=== PATIENT | male | born 1955 | race Caucasian/White ===

== ENCOUNTER 2020-06-10 10:08 | Outpatient (REF) | payer MEDICAID, SELFPAY ==
[2020-06-10 12:07] LABS: C Reactive Protein 1.25 mg/dL (< or = 0.50); Rheumatoid Factor < 15.0 IU/mL (<15.0)
[2020-06-10 12:21] LABS: Erythrocyte Sedimentation Rate 12 MM/HR (0-15)
[2020-06-11 11:06] LABS: Anti DNA DS Antibody <1 IU/mL
[2020-06-12 22:26] LABS: Cyclic Citrullinated Peptide <16 UNITS
[2020-06-13 21:23] LABS: Anti Nuclear Antibody Screen NEGATIVE (NEGATIVE)
== END 2020-06-10 10:09 | disposition home or self-care (01) ==
LOC: HO.LAB 10:08
PROVIDERS: PCP Internal Medicine; Visit Provider Internal Medicine
DX: M25.50 Pain in unspecified joint (principal)
CPT/HCPCS: 36415; 85652; 86038; 86039; 86140; 86200; 86225; 86431

== ENCOUNTER 2020-06-29 18:11 | Emergency (ER) | payer MEDICAID, SELFPAY ==
[2020-06-29] VITALS (20 sets, daily range): BP systolic 131–266; BP diastolic 82–144; PULSE 86–130; RESP 18–40; TEMP -17.7–36.6; O2SAT 80–98; BMI 44.1
[2020-06-29] MEDS: Furosemide 100 MG/10 ML VIAL 60 MG IVPUSH (18:16)
[2020-06-29] MEDS: Nitroglycerin/D5W 100 MG/250 ML INFUS..BTL IVCONT (18:20)
--- NOTE | 2020-06-29 18:23 | XR_ITS ---
EXAMINATION: XR CHEST CLINICAL INFORMATION: SOB. COMPARISON: None TECHNIQUE: Frontal view of the chest was obtained. FINDINGS: The lungs are hypoexpanded with diffuse patchy infiltrates both lower lobes and both mid lung region suspicious for underlying Covid infection. There is no visible pleural effusion. Heart size and pulmonary vascularity is normal. No gross bony abnormality seen. XR/XR chest 1V IMPRESSION: Bilateral lateral lung infiltrates more prominent in the right lung base.
--- NOTE | 2020-06-29 18:23 | ECG_ITS ---
Test Reason : DIFFICULT BREATHING Blood Pressure : / mmHG Vent. Rate : 129 BPM Atrial Rate : 129 BPM P-R Int : 146 ms QRS Dur : 092 ms QT Int : 300 ms P-R-T Axes : 041 047 080 degrees QTc Int : 439 ms Sinus tachycardia Possible Left atrial enlargement Nonspecific ST and T wave abnormality Abnormal ECG When compared with ECG of 16-FEB-2020 11:26, Vent. rate has increased BY [address] T changes more prominent. Referred By: Lorenzo Rey Electronically Signed By:ADAMARIS RUIZ
[2020-06-29 18:29] LABS: Glucose, Whole Blood 175 mg/dL (60-115)
--- NOTE | 2020-06-29 18:37 | ED.SOB ---
HPI - SOB/Dyspnea General Chief Complaint: Dyspnea Stated Complaint: Resp. Distress Time Seen by Provider: 06/29/20 18:32 Source: patient and EMS Mode of arrival: EMS Limitations: other (Respiratory distress) History of Present Illness HPI Narrative: 65-year-old male who was brought to the emergency department by ambulance in respiratory distress. The patient has been short of breath for 2-3 days with worsening symptoms last night. He has noticed increased swelling in his lower extremities times 1-2 months. He did have orthopnea and noted increasing dyspnea on exertion over the past 2 weeks. The patient denied fever or chills. He states that he has an occasional cough which is productive of green sputum. States this body always hurts. He did notice diarrhea over the last 2-3 days. Apparently the patient presented to the clinic to get tested for COVID-19 and he was found to be in moderate to severe respiratory distress. Patient was found to have very low O2 saturations on room air and was placed on CPAP during transport but he did not tolerate it and was placed on 100% non-rebreather mask. On presentation to the emergency department the patient's O2 saturation was 77% on 100% non-rebreather. The patient was hypertensive with a systolic blood pressure of 250. The patient was only able to talk in 1 word sentences and was in severe respiratory distress. MD elicited complaint: shortness of breath Pertinent past history: COPD Onset (ago): day(s) (2) Severity: severe Exacerbating factors: lying flat and exertion Relieving factors: nothing Known history of: COPD Related Data Allergies Allergy/AdvReac Type Severity Reaction Status Date / Time simvastatin [SIMVASTATIN] Allergy Unknown unknown Unverified 04/07/20 19:17 Review of Systems Review of Systems: Yes all other systems are reviewed and are negative Constitutional: Constitutional: Reports as per HPI Eyes: Eyes: Reports as per HPI ENT: Reports as per HPI Cardiovascular: Cardiovascular: Reports as per HPI Respiratory: Respiratory: Reports as per HPI Gastrointestinal: Gastrointestinal: Reports as per HPI Genitourinary: Genitourinary: Reports as per HPI Musculoskeletal: Musculoskeletal: Reports as per HPI Integumentary/Breasts: Skin/Breast: Reports as per HPI Neurologic: Reports as per HPI and Reports Abnormal speech present Psychiatric: Psychiatric: Reports as per HPI Allergic/Immunologic: Allergic/Immunologic: Reports as per HPI PMFSH Past Medical History PMFSH Narrative: The patient states that he is single and lives alone. He smokes 1 pack of cigarettes per day times many years but he states he stopped smoking 2 days prior. He drinks alcohol rarely. He does smoke marijuana several times a week. Medical History CAD (coronary artery disease) COPD (chronic obstructive pulmonary disease) Diabetes GERD (gastroesophageal reflux disease) HTN (hypertension) Sleep apnea Social History Social History Alcohol intake: never Smoking Status: Current every day smoker Smoked in Last 30 Days: No Use of substances other than those prescribed or required for medical reasons: Yes Substance Use Type: Marijuana Advance Directives: No Advance Directives Information Provided: Yes Physical Exam Vital Signs: Vital Signs: Last Vital Signs Temp 0 F L 06/29/20 18:27 Pulse 97 06/29/20 20:20 Resp 22 H 06/29/20 20:20 BP 143/90 H 06/29/20 20:20 Pulse Ox 95 06/29/20 20:20 Body Mass Index 44.1 Const: General: cooperative, alert, awake, in distress (Talking in 1-2 word sentences) severe and respiratory and other (Diaphoretic) Nutritional Appearance: obese Orientation/consciousness: oriented to person and oriented to place HENMT: Head: Yes normal to inspection, Yes normocephalic and Yes atraumatic Ears: external ears normal General nose exam: Normal external nose present Face and sinus: Yes normal facial exam Mouth: Normal oral and palatal mucosa present Throat: Yes posterior oropharynx normal Eyes: General: appearance normal, both eyes and all related structures Periorbital: periorbital findings normal Eyelids: Yes eyelids normal Conjunctivae: conjunctivae normal Sclerae: sclerae normal Corneas: corneas normal Pupils: Equal, round and reactive pupils present Direct Ophthalmoscopy: normal light reflex Neck: Neck: Yes normal visual inspection and Yes supple Lymphatic: no lymphadenopathy noted Chest: Chest palpation & inspection: normal inspection of the chest and normal palpation of entire chest wall Resp: Effort & Inspection: no audible wheezes, no cough, labored and respiratory distress (Severe) Auscultation: no crackles, no rales, no rhonchi, no wheezes and diminished lung sounds (Bilaterally) Cardio: Rate: regular rate and tachycardic Rhythm: regular rhythm Heart sounds: S1 normal heart sound present, S2 normal heart sound present and no murmurs GI: Inspection: No distended Palpation (GI): Soft to palpation, nontender, no guarding and No hepatosplenomegaly present Auscultation: normal bowel sounds : General: Yes no CVA tenderness Back/Spine/Pelvis: Back: no CVA tenderness Skin: General skin exam: no rashes or lesions noted Lesions: no lesions Rashes: no rashes Wounds: no wounds Neuro: General: oriented to person and oriented to place Cranial nerves: Yes CN's II-XII intact bilaterally and Yes Equal, round and reactive pupils present Cognition (Neuro): normal cognition Speech: Abnormal speech present Motor exam (neuro): 5/5 motor strength present throughout Extrem: General: Yes full ROM, Yes no pedal edema, Yes no calf tenderness and Yes edema (1+, bilaterally symmetric) Psych: Appearance: grossly normal Mental Status: mental status grossly normal Speech and movement: Clear speech present Affect: normal affect Thought process: Normal thought process present Course Course Course Narrative: 65-year-old male history of COPD, coronary artery disease, hypertension, hyperlipidemia who presents to the emergency department for evaluation of 2-3 days of shortness of breath which got worse last night, 1-2 months of dyspnea on exertion and orthopnea and 1 month of increasing peripheral edema. On presentation the patient was in severe respiratory distress with an O2 saturation of 77% on 100% non-rebreather. The patient had diminished breath sounds bilaterally and had 1+ pitting edema in his lower extremities. My impression is the patient has pulmonary edema as the cause of his symptoms. He was placed on BiPAP 16/680% FiO2 his O2 saturations improved to 94-96% with improvement in his labored breathing. The patient was hypertensive and he was started on a nitroglycerin drip with plan to titrate him up until the systolic blood pressure comes down to the 180 range. I did order a cardiac workup on this patient. The patient will be tested for COVID-19 as well. He was ordered to get aspirin orally and Lasix 60 mg IV. 2034: The patient's laboratory evaluation did reveal an elevated troponin of 666.6. The patient has a slight elevation in his AST and ALT at 56 and 59 with a slight elevation in BUN creatinine of 21 and 1.28. Repeat 12 lead EKG did reveal ST segment depression less than 1 mm in lead 1 and aVL and V5 through V6. The patient improved significantly after being placed on BiPAP and a nitroglycerin drip. He did get Lasix 60 mg IV but did not put out any urine therefore was given another dose of Lasix 80 mg IV. I did attempt to take the patient off BiPAP however his O2 saturation dropped to 85% on 2 L via nasal cannula knee became dyspneic therefore he was placed back on BiPAP. I did discuss the patient's elevated troponin with our utilization management manager, Dr. Wright and with our stroboroma operator, Dr. Ibarra. The intensity is felt that the patient would be more appropriately managed at [facility] and I did discuss the patient with the [facility] transfer line. Repeat EKG done at 2011 revealed a sinus tachycardia with a rate of 102, normal intervals, there is less than [address] segment depression in lead 1 and aVL and less than [address] segment depression V4 V5 which is similar to the 1st EKG, no ST segment elevation noted. 2134: I did discuss the patient's presentation with the utilization management manager at [facility], Dr. Swain and she said to the patient contingent on the patient's COVID-19 test the patient's COVID-19 test is negative, therefore I will recontact the transfer line to arrange transfer this patient to [facility]. Critical Care: The patient was critically ill with a high probability of imminent or life threatening deterioration. I spent greater than 30 minutes of discontinuous time evaluating the patient,delivering critical care at the bedside, discussing and evaluating pertinent data with our utilization management manager, our stroboroma operator and the utilization management manager at [facility]. Critical care time does not include time spent performing separately billable procedures or teaching. Total time spent performing critical care was75 minutes. MDM - SOB/Dyspnea Lab Data Result diagrams: 06/29/20 18:20 06/29/20 18:15 Labs: Lab Results 06/29/20 06/29/20 06/29/20 Range/Units 18:15 18:15 18:16 WBC (4.8-10.8) X10*3/uL RBC (4.60-5.80) X10*6/uL Hgb (14.0-18.0) g/dl Hct (42-52) % MCV (80-98) fL MCH (27.0-33.0) pg MCHC (31.0-36.0) g/dl RDW (11.0-16.0) % Plt Count MPV (9.4-12.4) fL Immature Gran % (Auto) (0.0-0.4) % Neut % (Auto) (45-73) % Lymph % (Auto) (20-40) % Davie % (Auto) (2-11) % Eos % (Auto) (0-4) % Baso % (Auto) (0-2) % Lymph # (Auto) (1.2-4.9) X10*3/uL Davie # (Auto) (0.1-1.2) X10*3/uL Eos # (Auto) (0.0-0.4) X10*3/uL Baso # (Auto) (0.0-0.2) X10*3/uL Abs Immat Gran (auto) (0.00-0.03) X10*3/uL Absolute Neuts (auto) (2.0-8.3) X10*3/uL Absolute Nucleated RBC (0.0-0.012) X10*3/uL Nucleated RBC % (auto) (0.0-0.2) /100WBC Smear Tech's Comments PT (10.8-13.0) SEC INR (0.9-1.1) APTT (24.1-38.0) SEC Sodium 145 (135-145) mmol/L Potassium 4.1 (3.3-5.1) mmol/l Chloride 101 (96-108) mmol/L Carbon Dioxide 28 (22-29) mmol/L Anion Gap 20 (12-20) BUN 21 H (9-16) mg/dL Creatinine 1.28 (0.5-1.4) mg/dL Estim Creat Clear Calc 93.4 Estimated GFR 57 POC Glucose 175 H (60-115) mg/dL Random Glucose 165 H (60-115) mg/dL Calcium 9.9 (8.4-10.2) mg/dL Total Bilirubin 0.4 (0.0-1.0) mg/dL AST 56 H (5-37) U/L ALT 59 H (0-40) U/L Alkaline Phosphatase 131 H (39-117) U/L Troponin I High Sens 666.6 H (<3.5-35.0) ng/L B-Natriuretic Peptide 464 H (<100) pg/mL Total Protein 7.4 (6.5-8.0) g/dL Albumin 4.3 (3.5-5.0) g/dL Coronavirus (PCR) (Negative) SARS-CoV-2 (PCR) COVID-19 (SANDY) (Negative) COVID-19 Clin Com Influenza Type A (PCR) (Negative) Influenza Type B (PCR) (Negative) RSV RNA Qual (PCR) (Negative) 06/29/20 06/29/20 06/29/20 Range/Units 18:20 18:20 20:26 WBC 17.8 H (4.8-10.8) X10*3/uL RBC 6.68 H (4.60-5.80) X10*6/uL Hgb 19.5 H (14.0-18.0) g/dl Hct 63.4 H (42-52) % MCV 94.9 (80-98) fL MCH 29.2 (27.0-33.0) pg MCHC 30.8 L (31.0-36.0) g/dl RDW 16.4 H (11.0-16.0) % Plt Count TNP MPV 11.2 (9.4-12.4) fL Immature Gran % (Auto) 1.7 H (0.0-0.4) % Neut % (Auto) 58.6 (45-73) % Lymph % (Auto) 30.8 (20-40) % Davie % (Auto) 6.4 (2-11) % Eos % (Auto) 1.9 (0-4) % Baso % (Auto) 0.6 (0-2) % Lymph # (Auto) 5.5 H (1.2-4.9) X10*3/uL Davie # (Auto) 1.1 (0.1-1.2) X10*3/uL Eos # (Auto) 0.3 (0.0-0.4) X10*3/uL Baso # (Auto) 0.1 (0.0-0.2) X10*3/uL Abs Immat Gran (auto) 0.30 H (0.00-0.03) X10*3/uL Absolute Neuts (auto) 10.4 H (2.0-8.3) X10*3/uL Absolute Nucleated RBC 0.000 (0.0-0.012) X10*3/uL Nucleated RBC % (auto) 0.0 (0.0-0.2) /100WBC Smear Tech's Comments VERIFIED PT 10.9 (10.8-13.0) SEC INR 0.9 (0.9-1.1) APTT 40.6 H (24.1-38.0) SEC Sodium (135-145) mmol/L Potassium (3.3-5.1) mmol/l Chloride (96-108) mmol/L Carbon Dioxide (22-29) mmol/L Anion Gap (12-20) BUN (9-16) mg/dL Creatinine (0.5-1.4) mg/dL Estim Creat Clear Calc Estimated GFR POC Glucose (60-115) mg/dL Random Glucose (60-115) mg/dL Calcium (8.4-10.2) mg/dL Total Bilirubin (0.0-1.0) mg/dL AST (5-37) U/L ALT (0-40) U/L Alkaline Phosphatase (39-117) U/L Troponin I High Sens (<3.5-35.0) ng/L B-Natriuretic Peptide (<100) pg/mL Total Protein (6.5-8.0) g/dL Albumin (3.5-5.0) g/dL Coronavirus (PCR) NEGATIVE (Negative) SARS-CoV-2 (PCR) Cancelled COVID-19 (SANDY) (Negative) COVID-19 Clin Com Influenza Type A (PCR) NEGATIVE (Negative) Influenza Type B (PCR) NEGATIVE (Negative) RSV RNA Qual (PCR) NEGATIVE (Negative) 06/29/20 Range/Units 21:08 WBC (4.8-10.8) X10*3/uL RBC (4.60-5.80) X10*6/uL Hgb (14.0-18.0) g/dl Hct (42-52) % MCV (80-98) fL MCH (27.0-33.0) pg MCHC (31.0-36.0) g/dl RDW (11.0-16.0) % Plt Count MPV (9.4-12.4) fL Immature Gran % (Auto) (0.0-0.4) % Neut % (Auto) (45-73) % Lymph % (Auto) (20-40) % Davie % (Auto) (2-11) % Eos % (Auto) (0-4) % Baso % (Auto) (0-2) % Lymph # (Auto) (1.2-4.9) X10*3/uL Davie # (Auto) (0.1-1.2) X10*3/uL Eos # (Auto) (0.0-0.4) X10*3/uL Baso # (Auto) (0.0-0.2) X10*3/uL Abs Immat Gran (auto) (0.00-0.03) X10*3/uL Absolute Neuts (auto) (2.0-8.3) X10*3/uL Absolute Nucleated RBC (0.0-0.012) X10*3/uL Nucleated RBC % (auto) (0.0-0.2) /100WBC Smear Tech's Comments PT (10.8-13.0) SEC INR (0.9-1.1) APTT (24.1-38.0) SEC Sodium (135-145) mmol/L Potassium (3.3-5.1) mmol/l Chloride (96-108) mmol/L Carbon Dioxide (22-29) mmol/L Anion Gap (12-20) BUN (9-16) mg/dL Creatinine (0.5-1.4) mg/dL Estim Creat Clear Calc Estimated GFR POC Glucose (60-115) mg/dL Random Glucose (60-115) mg/dL Calcium (8.4-10.2) mg/dL Total Bilirubin (0.0-1.0) mg/dL AST (5-37) U/L ALT (0-40) U/L Alkaline Phosphatase (39-117) U/L Troponin I High Sens (<3.5-35.0) ng/L B-Natriuretic Peptide (<100) pg/mL Total Protein (6.5-8.0) g/dL Albumin (3.5-5.0) g/dL Coronavirus (PCR) (Negative) SARS-CoV-2 (PCR) COVID-19 (SANDY) Negative (Negative) COVID-19 Clin Com See Note Influenza Type A (PCR) (Negative) Influenza Type B (PCR) (Negative) RSV RNA Qual (PCR) (Negative) ECG Data Attestation: I personally reviewed and interpreted this ECG as follows: ECG interpretation date: 06/29/20 ECG interpretation time: 18:17 Prior ECG tracings: not available for review Interpretation: Sinus tachycardia with a rate of 129, normal [place], QRS and QTC intervals, no ST segment elevation noted, [address] segment depression V4 V5 and V6, no old EKG for comparison, this may represent anterior/lateral ischemia.
--- NOTE | 2020-06-29 18:42 | PC.NURSE ---
Patient coming from [facility] with profound dyspnea, tachypnea pale, diaphoretic, edema, and HTN. 1 nitro was given by EMS for HTN, pt denies chest pain. 2nd IV established in ED and patient medicated w/ lasix and nitro drip per order from physician. Pt placed on BIPAP with settings of 16/6 and 80% O2 by EMS. O2 sat 80% on room air in ED. Patient has now been on BIPAP approximately 20 minutes, skin PWD, resp even, able to speak in full, clear sentences. tolerating bipap well. Patient states that he has had increasing SOB and unable to lay flat. Pitting edema to ble, cough noted. denies fevers. x ray at bedside
[2020-06-29 19:18] LABS: Alanine Aminotransferase 59 U/L (0-40); Albumin Level 4.3 g/dL (3.5-5.0); Alkaline Phosphatase 131 U/L (39-117); Anion Gap 20 (12-20); Aspartate Amino Transferase 56 U/L (5-37); Bilirubin Total 0.4 mg/dL (0.0-1.0); Blood Urea Nitrogen 21 mg/dL (9-16); Calcium 9.9 mg/dL (8.4-10.2); Carbon Dioxide 28 mmol/L (22-29); Chloride 101 mmol/L (96-108); Creatinine Clr Calc Pharmacy 93.4; Estimated Glomerular Filt Rate 57; Glucose Random 165 mg/dL (60-115); Potassium 4.1 mmol/l (3.3-5.1); Sodium 145 mmol/L (135-145); Total Protein 7.4 g/dL (6.5-8.0)
[2020-06-29 19:27] LABS: B Type Natriuretic Peptide 464 pg/mL (<100); Troponin-I High Sensitivity 666.6 ng/L (<3.5-35.0)
--- NOTE | 2020-06-29 20:00 | PC.NURSE ---
ATTEMPTED TO DISCONTINUE BIPAP USE. & RESPIRATORY THERAPIST AT BEDSIDE DURING ATTEMPT. PATIENT'S OXYGEN SATURATION BEGAN TO DECREASE TO 84% ON OXYGEN VIA NASAL CANNULA. BIPAP REAPPLIED WITH SETTINGS UNCHANGED. PATIENT CONTINUES TO TOLERATE BIPAP WITHOUT ISSUE. COVID SWAB OBTAINED AND SENT TO LAB FOR ANALYSIS. PLAN TO ADMIT TO ICU, AWAITING CALL BACK FROM [facility] [employer] [facility]ARDIOLOG[facility], PER . WILL CONTINUE TO MONITOR. VITAL SIGNS IMPROVING. NITRO DRIP CONTINUES TO INFUSE AT 80MCG/MIN. LASIX TO BE ADMINISTERED ORDERED. EKG REPEATED.
[2020-06-29] MEDS: Aspirin 81 MG TAB.CHEW 324 MG PO (20:08)
--- NOTE | 2020-06-29 20:12 | ECG_ITS ---
Test Reason : REPEAT EKG Blood Pressure : / mmHG Vent. Rate : 102 BPM Atrial Rate : 102 BPM P-R Int : 164 ms QRS Dur : 092 ms QT Int : 352 ms P-R-T Axes : 035 018 129 degrees QTc Int : 458 ms Sinus tachycardia Possible Left atrial enlargement Cannot rule out Inferior infarct , age undetermined ST & T wave abnormality, consider lateral ischemia Abnormal ECG When compared to the previous EKG of 29 jun 2020 18:17, lateral T inversion more prominent. Referred By: Lorenzo Rey Electronically Signed By:ADAMARIS RUIZ
[2020-06-29 20:32] LABS: Basophils Absolute Auto 0.1 X10*3/uL (0.0-0.2); Basophils Percent Auto 0.6 % (0-2); Eosinophils Absolute Auto 0.3 X10*3/uL (0.0-0.4); Eosinophils Percent Auto 1.9 % (0-4); Hemoglobin 19.5 g/dl (14.0-18.0); Imm Gran Pct Auto 1.7 % (0.0-0.4); Lymphocytes Absolute Auto 5.5 X10*3/uL (1.2-4.9); Lymphocytes Percent Auto 30.8 % (20-40); MANUAL DIFF FLAG SCAN; Mean Corpuscular HGB Conc 30.8 g/dl (31.0-36.0); Mean Corpuscular Hemoglobin 29.2 pg (27.0-33.0); Mean Corpuscular Volume 94.9 fL (80-98); Mean Platelet Volume 11.2 fL (9.4-12.4); Monocytes Absolute Auto 1.1 X10*3/uL (0.1-1.2); Monocytes Percent Auto 6.4 % (2-11); Neutrophils Absolute Auto 10.4 X10*3/uL (2.0-8.3); Neutrophils Percent Auto 58.6 % (45-73); Red Blood Count 6.68 X10*6/uL (4.60-5.80); Red Cell Distribution Width 16.4 % (11.0-16.0); SCAN SMEAR FLAG 1; White Blood Count 17.8 X10*3/uL (4.8-10.8)
[2020-06-29 20:33] LABS: Hematocrit 63.4 % (42-52)
[2020-06-29 20:34] LABS: INTERNATIONAL NORM RATIO 0.9 (0.9-1.1)
[2020-06-29 20:36] LABS: Partial Thromboplastin Time 40.6 SEC (24.1-38.0)
[2020-06-29 20:38] LABS: Prothrombin Time 10.9 SEC (10.8-13.0)
[2020-06-29] MEDS: Furosemide 100 MG/10 ML VIAL 80 MG IVPUSH (20:49)
[2020-06-29 20:53] LABS: SLIDE REVIEW VERIFIED
[2020-06-29 21:30] LABS: Influenza A PCR NEGATIVE (Negative); Influenza B PCR NEGATIVE (Negative); Resp Syncy Virus RNA Qual PCR NEGATIVE (Negative); SARS COV2 PCR INHOUSE NEGATIVE (Negative)
[2020-06-29 21:32] LABS: COVID-19 Test Negative (Negative)
[2020-06-29] MEDS: Heparin Sodium,Porcine 5,000 UNIT/ML VIAL 4000 UNIT IVPUSH (21:46)
[2020-06-29] MEDS: Heparin Sodium,Porcine/1/2NS 25,000 UNIT/250 ML IV.SOLN 21.87 UNIT IVCONT (21:47)
[2020-06-29 21:55] LABS: PTT Heparin Drip 33.3 SEC (53-77.9)
--- NOTE | 2020-06-29 22:02 | PC.NURSE ---
Addendum entered by La Dominguez 06/29/20 22:04: HEPARIN DRIP INFUSING AT 14 U/KG/HOUR, NOT 14 U/KG/MIN ACCIDENTALLY WRITTEN. Original Note: REPEAT TROPONIN LEVEL DRAWN AND SENT TO LAB FOR ANALYSIS. AWAITING RESULTS. COVID-19, FLU, AND RSV NEGATIVE. AWAITING TRANSPORT TO [facility] FOR TRANSFER. PATIENT AWARE OF NEW PLAN OF CARE. HEPARIN DRIP INFUSING ORDERED AT 14 U/KG/MIN, PER PROTOCOL. BILATERAL IV ACCESS REMAINS INTACT AND PATENT (RIGHT AC AND LEFT HAND). HEPARIN INFUSING IN RIGHT AC IV ACCESS, NITRO DRIP INFUSING IN LEFT HAND IV ACCESS. WILL CONTINUE TO MONITOR.
--- NOTE | 2020-06-29 22:32 | PC.NURSE ---
ATTEMPTED TO CALL [facility] TO GIVE RN TO RN REPORT. NURSE UNAVAILABLE FOR REPORT AT THIS TIME, AWAITING CALL BACK. PLAN TO TRANSFER/ADMIT TO [place] [id number], ROOM 22. ADMITTING PHYSICIAN .
[2020-06-29 23:41] LABS: Troponin-I High Sensitivity 1021.6 ng/L (<3.5-35.0)
== END 2020-06-29 23:01 | disposition short-term general hospital (02) ==
PROVIDERS: Emergency Provider Emergency Medicine Emergency Medical Services; PCP Internal Medicine
DX: R06.01 Orthopnea (principal); R00.0 Tachycardia, unspecified; R06.02 Shortness of breath; Z20.828 Contact with and (suspected) exposure to other viral communicable diseases; I10 Essential (primary) hypertension; R60.0 Localized edema; J44.9 Chronic obstructive pulmonary disease, unspecified; E11.9 Type 2 diabetes mellitus without complications; F17.210 Nicotine dependence, cigarettes, uncomplicated
CPT/HCPCS: 0241U; 36415; 71045; 80053; 82947; 83880; 84484; 85025; 85060; 85610; 85730; 87635; 93005; 94660; 96365; 96366; 96375; 96376; 99285; J1940; U0003

== ENCOUNTER 2020-07-19 15:54 | Outpatient (REF) | payer MEDICAID, SELFPAY ==
--- NOTE | 2020-07-19 16:11 | XR_ITS ---
EXAMINATION: CR X-RAY KNEE BILATERAL 4 VIEW CLINICAL INFORMATION: Bilateral knee pain. COMPARISON: None TECHNIQUE: 4 views each of the bilateral knees were obtained. FINDINGS: Minimal marginal patellar degenerative spurring is seen bilaterally, right greater than left. The joint space is unremarkable. The femoral tibial joint space is unremarkable. There is no joint effusion. The soft tissues are unremarkable. XR/XR knee LT 4V IMPRESSION: Minimal marginal degenerative patellar spurring, right greater than left. No acute abnormality.
--- NOTE | 2020-07-19 16:11 | XR_ITS ---
EXAMINATION: CR X-RAY KNEE BILATERAL 4 VIEW CLINICAL INFORMATION: Bilateral knee pain. COMPARISON: None TECHNIQUE: 4 views each of the bilateral knees were obtained. FINDINGS: Minimal marginal patellar degenerative spurring is seen bilaterally, right greater than left. The joint space is unremarkable. The femoral tibial joint space is unremarkable. There is no joint effusion. The soft tissues are unremarkable. XR/XR knee RT 4V IMPRESSION: Minimal marginal degenerative patellar spurring, right greater than left. No acute abnormality.
[2020-07-19 17:05] LABS: Estimated Average Glucose 154 mg/dL
[2020-07-19 17:10] LABS: Anion Gap 12 (12-20); Blood Urea Nitrogen 22 mg/dL (9-16); Calcium 9.3 mg/dL (8.4-10.2); Carbon Dioxide 35 mmol/L (22-29); Chloride 101 mmol/L (96-108); Estimated Glomerular Filt Rate 52; Glucose Random 96 mg/dL (60-115); Potassium 3.9 mmol/l (3.3-5.1); Sodium 144 mmol/L (135-145)
== END 2020-07-19 15:55 | disposition home or self-care (01) ==
LOC: HO.XRAY 15:54
PROVIDERS: PCP Internal Medicine; Visit Provider Internal Medicine
DX: M25.561 Pain in right knee (principal); M25.562 Pain in left knee; N17.9 Acute kidney failure, unspecified; E11.69 Type 2 diabetes mellitus with other specified complication
CPT/HCPCS: 73564; 80048; 83036

== ENCOUNTER 2020-08-24 11:19 | Outpatient (REF) | payer MEDICAID, SELFPAY ==
--- NOTE | 2020-08-24 11:25 | XR_ITS ---
EXAMINATION: LEFT WRIST, FOREARM AND ELBOW X-RAYS CLINICAL INFORMATION: Pain COMPARISON: None TECHNIQUE: 4 views of the left wrist, 2 views of the left forearm and 3 views of the left elbow FINDINGS: Left wrist: Bone alignment is normal. No fracture or dislocation is seen. There may be ulnar minus variance. Joint spaces are normal. Soft tissues are normal. Left forearm: Bone alignment is normal. No fracture or dislocation is seen. Soft tissues are unremarkable. Left elbow: Bone alignment is normal. No fracture or dislocation is seen. Joint spaces are normal. There is slight cortical irregularity of the lateral humeral condyle. There is no joint effusion. There is soft tissue swelling over the posterior elbow. XR/XR forearm LT 2V IMPRESSION: Left wrist: Question ulnar minus variance. Otherwise unremarkable exam. Left forearm: Unremarkable exam. Left elbow: Cortical irregularity of the lateral humeral condyle. Posterior soft tissue swelling.
--- NOTE | 2020-08-24 11:25 | XR_ITS ---
EXAMINATION: LEFT WRIST, FOREARM AND ELBOW X-RAYS CLINICAL INFORMATION: Pain COMPARISON: None TECHNIQUE: 4 views of the left wrist, 2 views of the left forearm and 3 views of the left elbow FINDINGS: Left wrist: Bone alignment is normal. No fracture or dislocation is seen. There may be ulnar minus variance. Joint spaces are normal. Soft tissues are normal. Left forearm: Bone alignment is normal. No fracture or dislocation is seen. Soft tissues are unremarkable. Left elbow: Bone alignment is normal. No fracture or dislocation is seen. Joint spaces are normal. There is slight cortical irregularity of the lateral humeral condyle. There is no joint effusion. There is soft tissue swelling over the posterior elbow. XR/XR elbow LT min 3V IMPRESSION: Left wrist: Question ulnar minus variance. Otherwise unremarkable exam. Left forearm: Unremarkable exam. Left elbow: Cortical irregularity of the lateral humeral condyle. Posterior soft tissue swelling.
--- NOTE | 2020-08-24 11:26 | XR_ITS ---
EXAMINATION: LEFT WRIST, FOREARM AND ELBOW X-RAYS CLINICAL INFORMATION: Pain COMPARISON: None TECHNIQUE: 4 views of the left wrist, 2 views of the left forearm and 3 views of the left elbow FINDINGS: Left wrist: Bone alignment is normal. No fracture or dislocation is seen. There may be ulnar minus variance. Joint spaces are normal. Soft tissues are normal. Left forearm: Bone alignment is normal. No fracture or dislocation is seen. Soft tissues are unremarkable. Left elbow: Bone alignment is normal. No fracture or dislocation is seen. Joint spaces are normal. There is slight cortical irregularity of the lateral humeral condyle. There is no joint effusion. There is soft tissue swelling over the posterior elbow. XR/XR wrist LT min 3V IMPRESSION: Left wrist: Question ulnar minus variance. Otherwise unremarkable exam. Left forearm: Unremarkable exam. Left elbow: Cortical irregularity of the lateral humeral condyle. Posterior soft tissue swelling.
== END 2020-08-24 11:20 | disposition home or self-care (01) ==
LOC: HO.XRAY 11:19
PROVIDERS: PCP Internal Medicine; Visit Provider Internal Medicine
DX: M25.522 Pain in left elbow (principal)
CPT/HCPCS: 73080; 73090; 73110

== ENCOUNTER → 2021-12-21 15:31 | Outpatient (BNVA) | payer MEDICAID, SELFPAY | PROVIDERS: PCP Nurse Practitioner Family; Visit Provider Hospitalist | DX: J44.9 Chronic obstructive pulmonary disease, unspecified (principal); G47.31 Primary central sleep apnea; R06.00 Dyspnea, unspecified; R91.8 Other nonspecific abnormal finding of lung field; F17.200 Nicotine dependence, unspecified, uncomplicated; Z79.899 Other long term (current) drug therapy | CPT/HCPCS: 99202 ==

== ENCOUNTER 2022-01-26 15:34 | Outpatient (REF) | payer MEDICAID, SELFPAY ==
--- NOTE | ~2022-01-26 | CT_ITS ---
EXAMINATION: CT CHEST SCREENING CLINICAL INFORMATION: Nicotine dependence. COMPARISON: Chest 06/29/2020 TECHNIQUE: Multidetector volumetric CT imaging of the chest is performed without contrast using low dose technique. Additional 2D coronal and sagittal reformatted images and axial 3D maximum intensity projection (MIP) images are generated on the CT workstation. This CT examination was performed using dose optimization techniques as appropriate, variously including the following: *Automated exposure control *Adjustment of mA and/or kV according to patient size (this includes techniques or standardized protocols for targeted exams where dose is matched to indication/reason for exam; i.e. extremities or head) *Use of iterative reconstruction technique DLP: 87 mGy-cm. FINDINGS: LUNGS: The lungs are well expanded and clear. A 2 mm nodule is seen in the right middle lobe axial image 276/6 and a 6 mm nodule is seen in the left lower lobe abutting the major fissure on axial image 243/6, previously measured 7 mm. Small granuloma left lower lobe is stable. MEDIASTINUM: The thyroid lobes are symmetric and normal. The central trachea and bronchi are widely patent. Heart size and pulmonary vascularity is normal. There is a 1.8 cm left para-aortic lymph node. There is trace coronary artery calcifications present. PLEURA: There is no pleural effusion. No pleural mass or thickening. AXILLA: No lymphadenopathy. UPPER ABDOMEN: Visualized liver, spleen, pancreas and bilateral adrenal glands are unremarkable. OSSEOUS STRUCTURES: There is mild ventral spondylosis mid and lower dorsal spine. No lytic or sclerotic process seen. CT/CT lung screening IMPRESSION: No change in the small calcific granuloma and the lung nodules from 2020. ASSESSMENT: Lung-RADS category 2, benign. RECOMMENDATION: Low-dose annual CT chest.
== END 2022-01-26 15:35 | disposition home or self-care (01) ==
LOC: HO.CT 15:34
PROVIDERS: Visit Provider Physician Assistant Medical
DX: Z12.2 Encounter for screening for malignant neoplasm of respiratory organs (principal); F17.210 Nicotine dependence, cigarettes, uncomplicated
CPT/HCPCS: 71271; G0296

== ENCOUNTER 2022-02-19 15:55 | Outpatient (REF) | payer MEDICAID, SELFPAY ==
--- NOTE | 2022-02-19 17:20 | PFT_ITS ---
This patient was not able to perform adequate maneuvers or lung volumes and diffusion capacity. Also could not perform the full effort for spirometry. The current findings only pertain to the baseline spirometry. Forced vital capacity 48%, FEV1 54%. FEV1/FVC ratio is 84. FEF 25-75 is 70. These results are consistent with restrictive pulmonary disorder. However, without complete test, it cannot be determined well. Clinical correlation is recommended. MD GISELLE Oswald/MODNoel / [id number]
== END 2022-02-19 15:56 | disposition home or self-care (01) ==
LOC: HO.RESP 15:55
PROVIDERS: PCP Nurse Practitioner Family; Visit Provider Hospitalist
DX: Z13.89 Encounter for screening for other disorder (principal)

== ENCOUNTER → 2022-03-05 15:32 | Outpatient (BNVA) | payer MEDICAID, SELFPAY | PROVIDERS: PCP Nurse Practitioner Family; Visit Provider Hospitalist | DX: J45.40 Moderate persistent asthma, uncomplicated (principal); G47.31 Primary central sleep apnea; J41.8 Mixed simple and mucopurulent chronic bronchitis; R06.09 Other forms of dyspnea; R91.8 Other nonspecific abnormal finding of lung field; F17.210 Nicotine dependence, cigarettes, uncomplicated | CPT/HCPCS: 99212 ==

== ENCOUNTER 2022-06-11 16:00 | Outpatient (RCR) | payer MEDICARE, MEDICAID, SELFPAY ==
[2022-04-27 13:05] VITALS: BP 120/70
== END 2022-07-17 13:37 | disposition home or self-care (01) ==
LOC: HO.PTCHIC 16:00
PROVIDERS: Visit Provider Nurse Practitioner Family
DX: M54.12 Radiculopathy, cervical region (principal)
CPT/HCPCS: 97110; 97140; 97162

== ENCOUNTER 2022-08-01 14:42 | Inpatient (IN) | payer MEDICARE, MEDICAID, SELFPAY ==
--- NOTE | ~2022-08-01 | XR_ITS ---
EXAMINATION: XR CHEST CLINICAL INFORMATION: Shortness of breath COMPARISON: Chest x-ray 07/09/2020 TECHNIQUE: 2 views of the chest were obtained. FINDINGS: Minimal pulmonary vascular crowding or subsegmental atelectasis at the medial left lung base. No airspace consolidation. No pleural effusion or pneumothorax. Cardiomediastinal silhouette is within normal limits. No evidence of pulmonary edema. No acute osseous injury identified. XR/XR chest 2V IMPRESSION: 1. Minimal pulmonary vascular crowding or subsegmental atelectasis at the medial left lung base. 2. No acute pulmonary process.
--- NOTE | ~2022-08-01 | XR_ITS ---
EXAMINATION: XR CHEST CLINICAL INFORMATION: Hypoxia. Follow-up infiltrates COMPARISON: None TECHNIQUE: Frontal view of the chest was obtained. FINDINGS: The lungs are hypoexpanded with patchy infiltrate/atelectasis in both lower lobes. The upper lungs are clear. The heart size and progress clarities normal. No gross bony abnormality seen. XR/XR chest 1V IMPRESSION: Hypoexpanded lungs with patchy infiltrate/atelectasis in both lower lobes.
[2022-08-01 14:53] VITALS: BP 169/81; BP 179/106; PULSE 65; PULSE 67; RESP 22; TEMP 37.2; O2SAT 84; O2SAT 87; BMI 38.5
[2022-08-01 15:05] VITALS: RESP 20; O2SAT 86
--- NOTE | 2022-08-01 15:13 | ED.GENADULT ---
HPI - General Adult General Chief complaint: Dyspnea Stated complaint: SOB FROM DR DE GUZMAN 83% RA PER EMS Time Seen by Provider: 08/01/22 15:06 Source: patient and EMS Mode of arrival: EMS Limitations: no limitations History of Present Illness HPI narrative: Patient is a 67 year old assigned male at with a history of COPD presenting to the emergency department today with increased shortness of breath and coughing up green-yvonne sputum. Patient states that 5 days ago he lost his taste of smell and since then he has had increased SOB with a cough. Patient states that he does not normally need oxygen at home. Patient states that he is a smoker but quit 5 days ago. Patient denies any dizziness, lightheadedness, abdominal pain, nausea, vomiting, fever, chills, blurry vision, double vision, loss of vision, chest pain, back pain, night sweats, pain with urination, increased urinary frequency, increased urinary urgency, blood in his urine or stool, syncope or a near syncopal episode, recent trauma or falls, bowel incontinence, bladder incontinence, bowel retention, bladder retention, or any other complaints at this time. Onset (ago): day(s) (5) Severity: moderate Severity scale (1-10): 4 Relieving factors: none Exacerbating factors: none Associated symptoms: cough and shortness of breath Treatments prior to arrival: none Related Data Home Medications Medication Instructions Recorded Confirmed allopurinol 100 mg tablet 100 mg PO DAILY 12/21/21 08/01/22 amlodipine 10 mg tablet 10 mg PO DAILY 12/21/21 08/01/22 aspirin 81 mg tablet,delayed 81 mg PO DAILY 12/21/21 08/01/22 release atorvastatin 40 mg tablet 40 mg PO DAILY 12/21/21 08/01/22 bupropion HCl 150 mg 24 hr tablet, 150 mg PO QAM 12/21/21 08/01/22 extended release carvedilol 25 mg tablet 25 mg PO BID 12/21/21 08/01/22 isosorbide mononitrate 60 mg 60 mg PO DAILY 12/21/21 08/01/22 tablet,extended release 24 hr omeprazole 20 mg capsule,delayed 20 mg PO DAILY 12/21/21 08/01/22 release dulaglutide 0.75 mg/0.5 mL 0.75 mg subcut ZAVALA 08/01/22 08/01/22 subcutaneous pen injector (Trulicity) empagliflozin 25 mg tablet 1 tab PO DAILY 08/01/22 08/01/22 (Jardiance) ergocalciferol (vitamin D2) 1,250 1 cap PO ZAVALA 08/01/22 08/01/22 mcg (50,000 unit) capsule (Vitamin D2) ipratropium 0.5 mg-albuterol 3 mg 3 ml inhalation BID PRN Shortness 08/01/22 08/01/22 (2.5 mg base)/3 mL nebulization Of Breath Or Wheezing soln olmesartan 40 mg tablet 1 tab PO DAILY 08/01/22 08/01/22 sertraline 100 mg tablet 2 tab PO DAILY 08/01/22 08/01/22 spironolactone 25 1 tab DAILY 08/01/22 08/01/22 mg-hydrochlorothiazide 25 mg tablet tamsulosin 0.4 mg capsule 1 cap PO DAILY 08/01/22 08/01/22 Allergies Allergy/AdvReac Type Severity Reaction Status Date / Time gabapentin Allergy Severe Nausea Verified 03/05/22 15:32 simvastatin [SIMVASTATIN] Allergy Unknown unknown Verified 03/05/22 15:32 Review of Systems Constitutional: Constitutional: Reports no additional constitutional complaints, Denies chills, Denies fever(s) and Denies night sweats Eyes: Eyes: Reports no additional eye complaints, Denies blurry vision, Denies change in vision, Denies diplopia, Denies eye discharge, Denies loss of vision and Denies eye pain ENT: Denies dizziness Cardiovascular: Cardiovascular: Reports no additional cardiovascular complaints, Denies chest pain, Denies lightheadedness, Denies Loss of Consciousness and Reports dyspnea Respiratory: Respiratory: Reports no additional respiratory complaints, Reports cough and Reports dyspnea Gastrointestinal: Gastrointestinal: Reports no additional gastrointestinal complaints, Denies abdominal pain, Denies melena, Denies hematochezia, Denies change in bowel habits and Denies change in stool character Genitourinary: Genitourinary: Reports no additional male genitourinary complaints, Denies hematuria, Denies oliguria, Denies difficulty urinating, Denies dysuria, Denies urinary frequency, Denies urinary hesitancy, Denies urinary incontinence and Denies urinary urgency Musculoskeletal: Musculoskeletal: Reports no additional musculoskeletal complaints, Denies numbness and Denies tingling Neurologic: Denies dizziness, Denies loss of vision, Denies numbness and Denies tingling Psychiatric: Psychiatric: Reports no additional psychiatric complaints Endocrine: Endocrine: Reports no additional endocrine complaints Hematologic/Lymphatic: Hematologic/Lymphatic: Reports no additional hematologic/lymphatic complaints Allergic/Immunologic: Allergic/Immunologic: Reports no additional allergic/immunologic complaints [facility] Past Medical History Attestation statement: The following information was validated with the patient. Source: old records reviewed and nursing notes reviewed Medical History Asthma CAD (coronary artery disease) Complex sleep apnea syndrome COPD (chronic obstructive pulmonary disease) Dyspnea GERD (gastroesophageal reflux disease) History of non-ST elevation myocardial infarction (NSTEMI) Hyperlipidemia Hypertension Personal history of nicotine dependence Pulmonary nodules Tubular adenoma of colon Type 2 diabetes mellitus without complication Surgical History History of colonoscopy History of esophagogastroduodenoscopy (EGD) Social History Social History Alcohol intake: unknown Patient Tobacco Use Status: Current everyday Tobacco user Tobacco use type: Cigarette Cigarette Packs Per Day: 0.75 Years Smoked: (onset 18 - 3/4ppd x 45yrs, 30pyh) Smoked in Last 30 Days: No Use of substances other than those prescribed or required for medical reasons: No Substance Use Type: Marijuana Advance Directives: No Advance Directives Information Provided: Yes Physical Exam ED Vital Signs: Vital Signs - 24 hr 08/01/22 14:53 08/01/22 15:05 08/01/22 15:29 Temperature 99.0 F Pulse Rate 67 63 Respiratory Rate 22 H 20 12 Blood Pressure 169/81 H Pulse Oximetry 87 L 86 L Oxygen Delivery Method Room Air Room Air BMI result Body Mass Index 38.5 Const General: cooperative, alert, awake and acute distress mild Nutritional Appearance: well nourished Orientation/consciousness: patient oriented x3 Limitations: no limitations HENMT Head: Yes normal to inspection and Yes atraumatic Ears: hearing grossly normal bilaterally and external ears normal General nose exam: Normal external nose present, no nasal discharge noted and no epistaxis Face and sinus: Yes normal facial exam, No abrasion and No laceration Mouth: Normal oral and palatal mucosa present, no drooling and no muffled voice Eyes General: appearance normal, both eyes and all related structures Periorbital: periorbital findings normal Eyelids: Yes eyelids normal Conjunctivae: conjunctivae normal Pupils: Equal, round and reactive pupils present EOM: EOMs intact bilaterally Neck Neck: Yes normal visual inspection, Yes full ROM and Yes no lymphadenopathy Chest Chest palpation & inspection: normal inspection of the chest Resp Effort & Inspection: Actively coughing, labored and respiratory distress Auscultation: diminished lung sounds diffuse Cardio Rate: regular rate Rhythm: regular rhythm GI Inspection: Yes normal to inspection Neuro General: patient oriented x3 and moves all extremities Cranial nerves: Yes Equal, round and reactive pupils present Cognition (Neuro): normal cognition Motor exam (neuro): 5/5 motor strength present throughout Sensory Exam: Normal double simultaneous stimulation for sensation Coordination: [id number] test normal Extrem General: Yes normal to inspection, Yes full ROM and Yes capillary refill normal Psych Appearance: grossly normal Mental Status: mental status grossly normal Affect: normal affect Attitude: cooperative Thought process: Normal thought process present Thought content: Normal thought content present Insight: Good insight present (Psych) Medications Administered Discontinued Medications Generic Name Dose Route Start Last Admin Trade Name Freq PRN Reason Stop Dose Admin Albuterol Sulfate 7.5 mg/ 10 mg 08/01/22 15:16 08/01/22 15:30 Albuterol Sulfate 2.5 mg INHALE 08/01/22 15:17 10 mg ONCE ONE Administration Albuterol Sulfate 10 mg/ 0 mg 08/01/22 15:11 08/01/22 15:28 Ipratropium [place] 0.5 mg INHALE 08/01/22 15:12 10 each ONCE ONE Administration Ceftriaxone Sodium 2 gm/ 50 mls @ 100 mls/hr 08/01/22 15:11 08/01/22 16:00 Sodium Chloride IV 08/01/22 15:40 Infused ONCE ONE Infusion Medical Decision Making Medical Decision Making MDM Narrative: Patient is a 67 year old assigned male at with a history of COPD presenting to the emergency department today with shortness of breath and a cough. Patient's physical exam showed an individual in respiratory distress with diminished lung sounds throughout. Patient's blood work was unremarkable. Patient's EKG was unremarkable. Patient's chest x-ray showed no acute process. Patient was originally 86% on room air. Patient was placed on 2LPM of Oxygen and his SPO2 increased to 93%. Patient was given an hour long breathing treatment and IM Solu-medrol by EMS. I spoke to the hospitalist team who agreed to admission. Patient's clinical presentation is consistent with a chronic lung disease exacerbation however, the patient's presentation is not consistent with sepsis (@ 1746). I explained my physical exam findings as well as all test results to the patient. I answered all questions asked by the patient. Patient verbalized agreement and understanding with this treatment plan and admission. Differential Diagnosis Differential Diagnoses: The differential diagnosis associated with the presentation includes COPD exacerbation, hypoxia Consult Healthcare Provider Management of the patient was discussed with: Hospitalist (agreed to admission) Lab Data MDM Lab Attestation statement: I reviewed the patient's lab results. 08/01/22 15:37 08/01/22 15:37 Labs: Lab Results 08/01/22 08/01/22 08/01/22 Range/Units 15:25 15:37 15:37 WBC 7.4 (4.8-10.8) X10*3/uL RBC 5.81 H (4.60-5.80) X10*6/uL Hgb 16.4 (14.0-18.0) g/dl Hct 52.7 H (42.0-52.0) % MCV 90.7 (80.0-98.0) fL MCH 28.2 (27.0-33.0) pg MCHC 31.1 (31.0-36.0) g/dl RDW 16.5 H (11.0-16.0) % Plt Count 143 L (160-400) X10*3/uL MPV 9.2 L (9.4-12.4) fL Immature Gran % (Auto) 1.1 H (0.0-0.4) % Neut % (Auto) 76.4 H (45-73) % Lymph % (Auto) 13.9 L (20-40) % Lawrence % (Auto) 5.7 (2-11) % Eos % (Auto) 2.4 (0-4) % Baso % (Auto) 0.5 (0-2) % Lymph # (Auto) 1.0 L (1.2-4.9) X10*3/uL Lawrence # (Auto) 0.4 (0.1-1.2) X10*3/uL Eos # (Auto) 0.2 (0.0-0.4) X10*3/uL Baso # (Auto) 0.0 (0.0-0.2) X10*3/uL Abs Immat Gran (auto) 0.08 H (0.00-0.03) X10*3/uL Absolute Neuts (auto) 5.7 (2.0-8.3) x10*3/uL Absolute Nucleated RBC 0.000 (0.0-0.012) X10*3/uL Nucleated RBC % (auto) 0.0 (0.0-0.2) /100WBC VBG pH (7.32-7.43) VBG pCO2 mmHg VBG pO2 mmHg VBG HCO3 (22-26) mmol/L VBG O2 Saturation % VBG Base Excess mmol/L Sodium 143 (135-145) mmol/L Potassium 4.3 (3.3-5.1) mmol/L Chloride 106 (96-108) mmol/L Carbon Dioxide 30 H (22-29) mmol/L Anion Gap 11 L (12-20) BUN 20 H (9-16) mg/dL Creatinine 0.89 (0.5-1.4) mg/dL Estim Creat Clear Calc 121.4 Estimated GFR > 60 Random Glucose 138 H (60-115) mg/dL Lactic Acid (0.5-2.0) mmol/L Calcium 9.7 (8.4-10.2) mg/dL Magnesium 1.8 (1.6-2.6) mg/dL Total Bilirubin 0.5 (0.0-1.0) mg/dL AST 16 (5-37) U/L ALT 14 (0-40) U/L Alkaline Phosphatase 103 (39-117) U/L Troponin I High Sens (<3.5-35.0) ng/L Total Protein 6.3 L (6.5-8.0) g/dL Albumin 3.9 (3.5-5.0) g/dL Influenza Type A (PCR) NEGATIVE (Negative) Influenza Type B (PCR) NEGATIVE (Negative) RSV RNA Qual (PCR) NEGATIVE (Negative) SARS-CoV-2 RNA (RT-PCR) NEGATIVE (Negative) 01/06/1308/01/22 08/01/22 Range/Units 15:37 15:37 16:16 WBC (4.8-10.8) X10*3/uL RBC (4.60-5.80) X10*6/uL Hgb (14.0-18.0) g/dl Hct (42.0-52.0) % MCV (80.0-98.0) fL MCH (27.0-33.0) pg MCHC (31.0-36.0) g/dl RDW (11.0-16.0) % Plt Count (160-400) X10*3/uL MPV (9.4-12.4) fL Immature Gran % (Auto) (0.0-0.4) % Neut % (Auto) (45-73) % Lymph % (Auto) (20-40) % Lawrence % (Auto) (2-11) % Eos % (Auto) (0-4) % Baso % (Auto) (0-2) % Lymph # (Auto) (1.2-4.9) X10*3/uL Lawrence # (Auto) (0.1-1.2) X10*3/uL Eos # (Auto) (0.0-0.4) X10*3/uL Baso # (Auto) (0.0-0.2) X10*3/uL Abs Immat Gran (auto) (0.00-0.03) X10*3/uL Absolute Neuts (auto) (2.0-8.3) x10*3/uL Absolute Nucleated RBC (0.0-0.012) X10*3/uL Nucleated RBC % (auto) (0.0-0.2) /100WBC VBG pH 7.32 (7.32-7.43) VBG pCO2 60 mmHg VBG pO2 62 mmHg VBG HCO3 31 H (22-26) mmol/L VBG O2 Saturation 86.0 % VBG Base Excess 3.5 mmol/L Sodium (135-145) mmol/L Potassium (3.3-5.1) mmol/L Chloride (96-108) mmol/L Carbon Dioxide (22-29) mmol/L Anion Gap (12-20) BUN (9-16) mg/dL Creatinine (0.5-1.4) mg/dL Estim Creat Clear Calc Estimated GFR Random Glucose (60-115) mg/dL Lactic Acid 1.5 (0.5-2.0) mmol/L Calcium (8.4-10.2) mg/dL Magnesium (1.6-2.6) mg/dL Total Bilirubin (0.0-1.0) mg/dL AST (5-37) U/L ALT (0-40) U/L Alkaline Phosphatase (39-117) U/L Troponin I High Sens 12.5 (<3.5-35.0) ng/L Total Protein (6.5-8.0) g/dL Albumin (3.5-5.0) g/dL Influenza Type A (PCR) (Negative) Influenza Type B (PCR) (Negative) RSV RNA Qual (PCR) (Negative) SARS-CoV-2 RNA (RT-PCR) (Negative) Independent Interpretation I performed an independent interpretation of an: EKG Interpretation: Vent. Rate: 087 BPM ? ? Atrial Rate: 087 BPM ?P-R Int: 178 ms? QRS Dur: 104 ms ?QT Int: 398 ms ? ? ? P-R-T Axes: 037 005 083 degrees ?QTc Int: 478 ms ? Normal sinus rhythm Inferior infarct (cited on or before 29-JUN-2020) Cannot rule out Anterior infarct , age undetermined T wave abnormality, consider lateral ischemia Abnormal ECG When compared with ECG of 29-JUN-2020 20:12, Questionable change in initial forces of Inferior leads ST no longer depressed in Anterolateral leads T wave inversion less evident in Lateral leads DD/ [id number] Radiology Impression Discussion of test interpretation with radiology: I have reviewed the radiologist's reading. Radiologist Impression: My interpretation is in agreement with the radiologist's impression of this imaging study. EXAMINATION: XR CHEST CLINICAL INFORMATION: Shortness of breath COMPARISON: Chest x-ray 07/09/2020 TECHNIQUE: 2 views of the chest were obtained. FINDINGS: Minimal pulmonary vascular crowding or subsegmental atelectasis at the medial left lung base. No airspace consolidation. No pleural effusion or pneumothorax. Cardiomediastinal silhouette is within normal limits. No evidence of pulmonary edema. No acute osseous injury identified. XR/XR chest 2V IMPRESSION: 1.? Minimal pulmonary vascular crowding or subsegmental atelectasis at the medial left lung base. 2.? No acute pulmonary process. Dictated By: Solitario Villegas Signed By: Electronically signed by Ian 08/01/22 1729 Independent Historian Clinical information obtained from an independent historian. History obtained from or confirmed by: EMS Chronic Conditions Patient?s care impacted by: Other (COPD) Critical Care Time Critical Care Time Critical Care Time: Yes Total Critical Care Time: 30 Attestation: I spent 30 minutes of Critical Care Time with this patient. This does not include time spent on separately reported billable procedures. Discharge Plan Discharge Clinical Impression: COPD (chronic obstructive pulmonary disease), Hypoxia Patient Disposition: Admitted As Inpatient
[2022-08-01 15:29] VITALS: PULSE 63; RESP 12; O2SAT 92
[2022-08-01] MEDS: Albuterol Sulfate 7.5 MG, Albuterol Sulfate (0.083%) 2.5 MG 10 MG INHALE (15:30)
[2022-08-01] MEDS: cefTRIAXone sodium 2 GM in 0.9 % Sodium Chloride 50 ML IV (15:41)
[2022-08-01 15:43] LABS: MANUAL DIFF FLAG NO
[2022-08-01 15:45] LABS: Basophils Percent Auto 0.5 % (0-2); Eosinophils Absolute Auto 0.2 X10*3/uL (0.0-0.4); Eosinophils Percent Auto 2.4 % (0-4); Hematocrit 52.7 % (42.0-52.0); Hemoglobin 16.4 g/dl (14.0-18.0); Imm Gran Abs Auto 0.08 X10*3/uL (0.00-0.03); Imm Gran Pct Auto 1.1 % (0.0-0.4); Lymphocytes Percent Auto 13.9 % (20-40); Mean Corpuscular HGB Conc 31.1 g/dl (31.0-36.0); Mean Corpuscular Hemoglobin 28.2 pg (27.0-33.0); Mean Corpuscular Volume 90.7 fL (80.0-98.0); Mean Platelet Volume 9.2 fL (9.4-12.4); Monocytes Absolute Auto 0.4 X10*3/uL (0.1-1.2); Monocytes Percent Auto 5.7 % (2-11); Neutrophils Absolute Auto 5.7 x10*3/uL (2.0-8.3); Neutrophils Percent Auto 76.4 % (45-73); Platelet Count 143 X10*3/uL (160-400); Red Blood Count 5.81 X10*6/uL (4.60-5.80); Red Cell Distribution Width 16.5 % (11.0-16.0); White Blood Count 7.4 X10*3/uL (4.8-10.8)
[2022-08-01 15:58] LABS: Lactic Acid 1.5 mmol/L (0.5-2.0)
[2022-08-01 16:01] LABS: Alanine Aminotransferase 14 U/L (0-40); Albumin Level 3.9 g/dL (3.5-5.0); Alkaline Phosphatase 103 U/L (39-117); Anion Gap 11 (12-20); Aspartate Amino Transferase 16 U/L (5-37); Bilirubin Total 0.5 mg/dL (0.0-1.0); Blood Urea Nitrogen 20 mg/dL (9-16); Calcium 9.7 mg/dL (8.4-10.2); Carbon Dioxide 30 mmol/L (22-29); Chloride 106 mmol/L (96-108); Creatinine Clr Calc Pharmacy 121.4; Estimated Glomerular Filt Rate > 60; Glucose Random 138 mg/dL (60-115); Magnesium 1.8 mg/dL (1.6-2.6); Potassium 4.3 mmol/L (3.3-5.1); Sodium 143 mmol/L (135-145); Total Protein 6.3 g/dL (6.5-8.0)
[2022-08-01 16:09] LABS: Troponin-I High Sensitivity 12.5 ng/L (<3.5-35.0)
[2022-08-01 16:16] LABS: Influenza A PCR NEGATIVE (Negative); Influenza B PCR NEGATIVE (Negative); Resp Syncy Virus RNA Qual PCR NEGATIVE (Negative); SARS COV2 PCR INHOUSE NEGATIVE (Negative)
[2022-08-01 16:23] LABS: Venous Blood Gas Refer to POC result
[2022-08-01 16:23] LABS: VBG Base Excess 3.5 mmol/L; VBG HCO3 31 mmol/L (22-26); VBG pCO2 60 mmHg; VBG pH 7.32 (7.32-7.43); VBG pO2 62 mmHg
--- NOTE | 2022-08-01 16:53 | PHA.MEDREC ---
Pharmacy Consult ? Medication Reconciliation Pharmacy has completed the medication reconciliation.
--- NOTE | 2022-08-01 17:22 | ECG_ITS ---
Test Reason : SOB Blood Pressure : / mmHG Vent. Rate : 087 BPM Atrial Rate : 087 BPM P-R Int : 178 ms QRS Dur : 104 ms QT Int : 398 ms P-R-T Axes : 037 005 083 degrees QTc Int : 478 ms Normal sinus rhythm Inferior infarct (cited on or before 29-JUN-2020) Nonspecific ST changes When compared to the previous EKG of No significant changes seen Referred By: Catherine Starkey Electronically Signed By:Roderick Brown
[2022-08-01 18:01] LABS: B Type Natriuretic Peptide 91 pg/mL (<100)
[2022-08-01 18:33] VITALS: BP 151/67; PULSE 68; RESP 20; TEMP 36.7; O2SAT 95
--- NOTE | 2022-08-01 18:39 | PM.IMHP ---
History of Present Illness Date of Service: 08/01/22 Chief Complaint: Dyspnea A 67 years old male with PMH of COPD, smoking, obesity, diabetes, HTN among others who presents to the hospital complaining of difficulty breathing for the last 5 days or so. The patient reports that for the last 5 days he lost his sense of taste and started to develop symptoms of shortness of breath and coughing with associated chills but no fever. He stop smoking at that point but continued to get worse with increased weakness and feeling like he was hit by a bus. Denies any fever, headache, dizziness, abdominal pain, nausea, vomiting, change in bowel habit or urinary symptoms. In the emergency he was found to be hypoxic in mid 80s on room air. Responded well to treatment with oxygen, steroids and nebulizers. Admitted for further evaluation and treatment. Review of Systems Review of Systems: No fever but has chills and generalized weakness No chest pain, palpitation shortness of breath and coughing No abdominal pain, nausea or vomiting No urinary symptoms No any rash or wounds PMFSH Medical History Asthma CAD (coronary artery disease) Complex sleep apnea syndrome COPD (chronic obstructive pulmonary disease) Dyspnea GERD (gastroesophageal reflux disease) History of non-ST elevation myocardial infarction (NSTEMI) Hyperlipidemia Hypertension Personal history of nicotine dependence Pulmonary nodules Tubular adenoma of colon Type 2 diabetes mellitus without complication Surgical History History of colonoscopy History of esophagogastroduodenoscopy (EGD) Social History Alcohol intake: unknown Patient Tobacco Use Status: Current everyday Tobacco user Tobacco use type: Cigarette Cigarette Packs Per Day: 0.75 Years Smoked: (onset 18 - 3/4ppd x 45yrs, 30pyh) Smoked in Last 30 Days: No Use of substances other than those prescribed or required for medical reasons: No Substance Use Type: Marijuana Advance Directives: No Advance Directives Information Provided: Yes Meds Allergies Allergy/AdvReac Type Severity Reaction Status Date / Time gabapentin Allergy Severe Nausea Verified 03/05/22 15:32 simvastatin [SIMVASTATIN] Allergy Unknown unknown Verified 03/05/22 15:32 Active Medications: Current Medications Pharmacy Consult (Consult Rx Perform Med Rec) 1 each MISCELLANE ONCE PRN PRN Reason: Consult order Home Medications Medication Instructions Recorded Confirmed Last Taken Type allopurinol 100 mg tablet 100 mg PO DAILY 12/21/21 08/01/22 07/31/22 History amlodipine 10 mg tablet 10 mg PO DAILY 12/21/21 08/01/22 07/31/22 History aspirin 81 mg tablet,delayed 81 mg PO DAILY 12/21/21 08/01/22 07/31/22 History release atorvastatin 40 mg tablet 40 mg PO DAILY 12/21/21 08/01/22 07/31/22 History bupropion HCl 150 mg 24 hr tablet, 150 mg PO QAM 12/21/21 08/01/22 07/31/22 History extended release carvedilol 25 mg tablet 25 mg PO BID 12/21/21 08/01/22 07/31/22 History isosorbide mononitrate 60 mg 60 mg PO DAILY 12/21/21 08/01/22 07/31/22 History tablet,extended release 24 hr omeprazole 20 mg capsule,delayed 20 mg PO DAILY 12/21/21 08/01/22 07/31/22 History release dulaglutide 0.75 mg/0.5 mL 0.75 mg subcut ZAVALA 08/01/22 08/01/22 07/29/22 History subcutaneous pen injector (Trulicity) empagliflozin 25 mg tablet 1 tab PO DAILY 08/01/22 08/01/22 07/31/22 History (Jardiance) ergocalciferol (vitamin D2) 1,250 1 cap PO ZAVALA 08/01/22 08/01/22 07/31/22 History mcg (50,000 unit) capsule (Vitamin D2) ipratropium 0.5 mg-albuterol 3 mg 3 ml inhalation BID PRN Shortness 08/01/22 08/01/22 Unknown History (2.5 mg base)/3 mL nebulization Of Breath Or Wheezing soln olmesartan 40 mg tablet 1 tab PO DAILY 08/01/22 08/01/22 07/31/22 History sertraline 100 mg tablet 2 tab PO DAILY 08/01/22 08/01/22 07/31/22 History spironolactone 25 1 tab DAILY 08/01/22 08/01/22 07/31/22 History mg-hydrochlorothiazide 25 mg tablet tamsulosin 0.4 mg capsule 1 cap PO DAILY 08/01/22 08/01/22 07/31/22 History Physical Exam Vital Signs and Narrative: Vital Signs: Last Vital Signs Temp 98.0 F 08/01/22 18:33 Pulse 68 08/01/22 18:33 Resp 20 08/01/22 18:33 BP 151/67 H 08/01/22 18:33 Pulse Ox 95 08/01/22 18:33 O2 Del Method 08/01/22 18:33 O2 Flow Rate 4 08/01/22 18:33 BMI result Body Mass Index 38.5 Const: Other: Constitutional : Awake, interactive, not in distress Neck : Normal inspection, Supple Cardiovascular : RRR, no JVP, no lower extremity edema Respiratory : decreased bilateral air entry, expiratory wheezes, in mild distress, on oxygen supplement Gastrointestinal: soft, lax, Normal bowel sounds, Non tender Skin : Warm, Dry Neurological : Alert & oriented x3, No focal deficit Results Labs 08/01/22 15:37 08/01/22 15:37 Labs: Laboratory Results - last 24 hr 08/01/22 08/01/22 08/01/22 15:25 15:37 15:37 MCV 90.7 MCH 28.2 MCHC 31.1 RDW 16.5 H Plt Count 143 L MPV 9.2 L Immature Gran % (Auto) 1.1 H Neut % (Auto) 76.4 H Lymph % (Auto) 13.9 L [place] % (Auto) 5.7 Eos % (Auto) 2.4 Baso % (Auto) 0.5 Lymph # (Auto) 1.0 L [place] # (Auto) 0.4 Eos # (Auto) 0.2 Baso # (Auto) 0.0 Abs Immat Gran (auto) 0.08 H Absolute Neuts (auto) 5.7 Absolute Nucleated RBC 0.000 Nucleated RBC % (auto) 0.0 VBG pH VBG pCO2 VBG pO2 VBG HCO3 VBG O2 Saturation VBG Base Excess Anion Gap 11 L Estim Creat Clear Calc 121.4 Estimated GFR > 60 Random Glucose 138 H Lactic Acid Calcium 9.7 Magnesium 1.8 Total Bilirubin 0.5 AST 16 ALT 14 Alkaline Phosphatase 103 Troponin I High Sens B-Natriuretic Peptide Total Protein 6.3 L Albumin 3.9 Influenza Type A (PCR) NEGATIVE Influenza Type B (PCR) NEGATIVE RSV RNA Qual (PCR) NEGATIVE SARS-CoV-2 RNA (RT-PCR) NEGATIVE 08/01/22 08/01/22 08/01/22 15:37 15:37 15:37 MCV MCH MCHC RDW Plt Count MPV Immature Gran % (Auto) Neut % (Auto) Lymph % (Auto) Branch % (Auto) Eos % (Auto) Baso % (Auto) Lymph # (Auto) Branch # (Auto) Eos # (Auto) Baso # (Auto) Abs Immat Gran (auto) Absolute Neuts (auto) Absolute Nucleated RBC Nucleated RBC % (auto) VBG pH VBG pCO2 VBG pO2 VBG HCO3 VBG O2 Saturation VBG Base Excess Anion Gap Estim Creat Clear Calc Estimated GFR Random Glucose Lactic Acid 1.5 Calcium Magnesium Total Bilirubin AST ALT Alkaline Phosphatase Troponin I High Sens 12.5 B-Natriuretic Peptide 91 Total Protein Albumin Influenza Type A (PCR) Influenza Type B (PCR) RSV RNA Qual (PCR) SARS-CoV-2 RNA (RT-PCR) 08/01/22 16:16 MCV MCH MCHC RDW Plt Count MPV Immature Gran % (Auto) Neut % (Auto) Lymph % (Auto) Branch % (Auto) Eos % (Auto) Baso % (Auto) Lymph # (Auto) Branch # (Auto) Eos # (Auto) Baso # (Auto) Abs Immat Gran (auto) Absolute Neuts (auto) Absolute Nucleated RBC Nucleated RBC % (auto) VBG pH 7.32 VBG pCO2 60 VBG pO2 62 VBG HCO3 31 H VBG O2 Saturation 86.0 VBG Base Excess 3.5 Anion Gap Estim Creat Clear Calc Estimated GFR Random Glucose Lactic Acid Calcium Magnesium Total Bilirubin AST ALT Alkaline Phosphatase Troponin I High Sens B-Natriuretic Peptide Total Protein Albumin Influenza Type A (PCR) Influenza Type B (PCR) RSV RNA Qual (PCR) SARS-CoV-2 RNA (RT-PCR) Imaging Radiologist's Impressions: Impressions Chest X-Ray 08/01/22 16:50 IMPRESSION: 1. Minimal pulmonary vascular crowding or subsegmental atelectasis at the medial left lung base. 2. No acute pulmonary process. Assessment and Plan (1) Acute respiratory failure with hypoxia: Status: Acute (2) COPD (chronic obstructive pulmonary disease): Status: Acute Plan A 67 years old male with PMH of COPD, smoking, obesity, diabetes, HTN among others who presents to the hospital complaining of difficulty breathing for the last 5 days or so. Acute hypoxic respiratory failure 2/2 COPD exacerbation & CAP CXR showing LLL possible infiltrates Wheezes bilaterally on exam pending blood cultures Duonebs, steroids and oxygen supplement antibiotics wean O2 down as tolerated Type 2 DM Hold Trulicity SSI diabetic diet Hx CAD Continue ASA, statin , Isosorbide and Carvedilol HTN Amlodipine and HCT DVT PPz Lovenox PAtient will likely need 2 nights of inpatient care for hypoxic respiratory failure Time Spent With Patient Time: Total time managing care of this patient today ____ minutes. Quality Stroke Does the patient have a stroke diagnosis?: No VTE Prior VTE?: No VTE Risk Level:: Medical - moderate - high VTE Device Contraindication: Treatment Not Indicated VTE Drug Contraindication: N/A - Med Ordered
[2022-08-01] MEDS: Azithromycin 500 MG TABLET PO (19:09)
[2022-08-01 19:10] VITALS: PULSE 92; RESP 20; O2SAT 92
--- NOTE | 2022-08-01 19:17 | PC.NURSE ---
Pt resting quietly.
[2022-08-01] MEDS: Enoxaparin Sodium 40 MG/0.4 ML SYRINGE SUBCUT (20:09)
[2022-08-01 20:24] LABS: Glucose, Whole Blood 281 mg/dL (60-115)
[2022-08-01 21:09] LABS: Glucose, Whole Blood 317 mg/dL (60-115)
[2022-08-01] MEDS: Insulin Lispro 100 UNIT/ML 3 ML VIAL SUBCUT (21:19)
[2022-08-01] MEDS: carvediloL 25 MG TABLET PO (21:22)
--- NOTE | 2022-08-01 21:50 | MHC.CM.PN ---
CM met with admitted patient with bed assignment pending. Pt lives alone. Has Nebulizer and CPAP. PCP is Rachelle Lopes. Pfizer x3 (10/21/20, 11/13/20, 05/15/22). HCP reviewed, completed and signed. Copies given. Uploaded into [facility] and [facility]. HCP/sister Faiza Gallegos ([phone]). D/C plan: home without services. Pt may need transportation home. CM to follow for d/c needs.
[2022-08-01 22:58] VITALS: BP 167/84; PULSE 78; RESP 20; TEMP 36.8; O2SAT 90
[2022-08-02] VITALS (13 sets, daily range): BP systolic 133–175; BP diastolic 71–98; PULSE 55–87; RESP 14–21; TEMP 36.4–36.8; O2SAT 88–93
--- NOTE | 2022-08-02 00:04 | PC.NURSE ---
Pt sleeping at this time VSS.
--- NOTE | 2022-08-02 02:24 | PC.NURSE ---
Pt sleeping at this time, respirations regular.
--- NOTE | 2022-08-02 05:47 | PC.NURSE ---
Pt resting quietly, no needs expressed.
[2022-08-02 06:42] LABS: Hematocrit 54.1 % (42.0-52.0); Hemoglobin 16.4 g/dl (14.0-18.0); Mean Corpuscular HGB Conc 30.3 g/dl (31.0-36.0); Mean Corpuscular Volume 92.3 fL (80.0-98.0); Mean Platelet Volume 9.9 fL (9.4-12.4); Platelet Count 161 X10*3/uL (160-400); Red Blood Count 5.86 X10*6/uL (4.60-5.80); Red Cell Distribution Width 16.5 % (11.0-16.0); White Blood Count 11.4 X10*3/uL (4.8-10.8)
[2022-08-02] MEDS: Omeprazole 20 MG CAPSULE.DR PO (06:44)
[2022-08-02 06:49] LABS: Anion Gap 12 (12-20); Blood Urea Nitrogen 28 mg/dL (9-16); Calcium 9.5 mg/dL (8.4-10.2); Carbon Dioxide 31 mmol/L (22-29); Chloride 104 mmol/L (96-108); Creatinine Clr Calc Pharmacy 95.6; Estimated Glomerular Filt Rate > 60; Glucose Random 124 mg/dL (60-115); Potassium 5.1 mmol/L (3.3-5.1); Sodium 142 mmol/L (135-145)
[2022-08-02 07:14] LABS: Glucose, Whole Blood 142 mg/dL (60-115)
[2022-08-02] MEDS: Isosorbide Mononitrate 60 MG TAB.ER.24H PO (07:46)
[2022-08-02] MEDS: Aspirin Enteric Coated 81 MG TABLET.DR PO (07:47)
[2022-08-02] MEDS: Spironolactone 25 MG TABLET PO (07:47)
[2022-08-02] MEDS: Atorvastatin Calcium 40 MG TABLET PO (07:48)
[2022-08-02] MEDS: hydroCHLOROthiazide 25 MG TABLET PO (07:48)
[2022-08-02] MEDS: amLODIPine Besylate 10 MG TABLET PO (07:48)
[2022-08-02] MEDS: buPROPion HCl XL 150 MG TAB.ER.24H PO (07:48)
[2022-08-02] MEDS: methylPREDNISolone Sod Succ 40 MG/ML VIAL IVPUSH ×2 (07:49→21:29)
[2022-08-02] MEDS: Sertraline HCL 100 MG TABLET 200 MG PO (07:49)
[2022-08-02] MEDS: Tamsulosin HCL 0.4 MG CAPSULE PO (07:49)
[2022-08-02] MEDS: carvediloL 25 MG TABLET PO ×2 (07:50→21:28)
[2022-08-02] MEDS: allopurinoL 100 MG TABLET PO (07:51)
[2022-08-02] MEDS: 0.9 % Sodium Chloride Flush 3 ML SYRINGE IVFLUSH ×3 (07:53→23:43)
--- NOTE | 2022-08-02 08:00 | PC.NURSE ---
pt is a/o x 4 no sob/vero noted speaks in full sentences. 02 sat 87-88%, 02 increased to 4l/m via n/c, 02 90-91%. lungs - rul slight exp wheezing, all other lobes diminished. heart sound regular. abd obese, soft and non-tender. bs + x 4 quads. no edema noted. pt is receiving a breathing tx at this time. pt aware of plan of care.
[2022-08-02 09:02] LABS: Adenovirus PCR Not Detected (Not Detect.); Bordetella parapertussis PCR Not Detected (Not Detect.); Bordetella pertussis PCR Not Detected (Not Detect.); Chlamydia pneumoniae PCR Not Detected (Not Detect.); Coronavirus 229E PCR Not Detected (Not Detect.); Coronavirus HKU1 PCR Not Detected (Not Detect.); Coronavirus NL63 PCR Not Detected (Not Detect.); Coronavirus OC43 PCR Not Detected (Not Detect.); Human metapneumovirus PCR Not Detected (Not Detect.); Influenza A PCR Not Detected (Not Detect.); Influenza B PCR Not Detected (Not Detect.); Mycoplasma pneumoniae PCR Not Detected (Not Detect.); Parainfluenza 1 PCR Not Detected (Not Detect.); Parainfluenza 2 PCR Not Detected (Not Detect.); Parainfluenza 3 PCR Not Detected (Not Detect.); Parainfluenza 4 PCR Not Detected (Not Detect.); RSV PCR Not Detected (Not Detect.); Rhino/Enterovirus PCR Detected (Not Detect.); SARS-CoV-2 PCR Not Detected (Not Detect.)
[2022-08-02] MEDS: Empagliflozin 25 MG TABLET PO (10:33)
[2022-08-02 13:17] LABS: Glucose, Whole Blood 181 mg/dL (60-115)
[2022-08-02] MEDS: Insulin Lispro 100 UNIT/ML 3 ML VIAL SUBCUT ×3 (13:21→21:28)
--- NOTE | 2022-08-02 14:29 | HO.PM.IMPN ---
Subjective Subjective Date of Service: 08/02/22 Interval History: Seen and evaluated this morning Still complaining of dyspnea and O2 sats dropping to mid 80s Overall feels mildly better No reported overnight events Review of Systems No fever or chills but has generalized weakness No chest pain, palpitation shortness of breath and coughing No abdominal pain, nausea or vomiting No urinary symptoms No any rash or wounds Physical Exam Vital Signs: Vital Signs: Last Vital Signs Temp 98.0 F 08/02/22 14:14 Pulse 68 08/02/22 14:14 Resp 21 H 08/02/22 14:14 BP 133/72 08/02/22 14:14 Pulse Ox 88 L 08/02/22 14:14 O2 Del Method 08/02/22 14:14 O2 Flow Rate 4 08/02/22 14:14 BMI result Body Mass Index 38.5 Const: Other: Constitutional : Awake, interactive, not in distress Neck : Normal inspection, Supple Cardiovascular : RRR, no JVP, no lower extremity edema Respiratory : decreased bilateral air entry, expiratory wheezes, in mild distress, on oxygen supplement Gastrointestinal: soft, lax, Normal bowel sounds, Non tender Skin : Warm, Dry Neurological : Alert & oriented x3, No focal deficit Objective Data Active Medications Acetaminophen (Acetaminophen 325 Mg Tablet) 650 mg PO Q6H PRN PRN Reason: Pain, Mild (Pain Scale 1-3) Albuterol Sulfate (Albuterol Sulfate (0.083%) 2.5 Mg/3 Ml Vial.Neb) 2.5 mg INHALE Q4H PRN PRN Reason: Shortness of Breath/Wheezing Allopurinol (Allopurinol 100 Mg Tablet) 100 mg PO DAILY [facility] Last Admin: 08/02/22 07:51 Dose: 100 mg Documented By: DARIANA Amlodipine Besylate (Amlodipine Besylate 10 Mg Tablet) 10 mg PO DAILY [facility]; Protocol Last Admin: 08/02/22 07:48 Dose: 10 mg Documented By: DARIANA Aspirin (Aspirin Enteric Coated 81 Mg Tablet.) 81 mg PO DAILY [facility] Last Admin: 08/02/22 07:47 Dose: 81 mg Documented By: DARIANA Atorvastatin Calcium (Atorvastatin Calcium 40 Mg Tablet) 40 mg PO DAILY [facility] Last Admin: 08/02/22 07:48 Dose: 40 mg Documented By: DARIANA Azithromycin (Azithromycin 500 Mg Tablet) 500 mg PO Q24H [facility] Last Admin: 08/01/22 19:09 Dose: 500 mg Documented By: MICAELA Bupropion HCl (Bupropion Hcl Xl 150 Mg Tab.Er.24h) 150 mg PO DAILY [facility] Last Admin: 08/02/22 07:48 Dose: 150 mg Documented By: DARIANA Carvedilol (Carvedilol 25 Mg Tablet) 25 mg PO BID [facility]; Protocol Last Admin: 08/02/22 07:50 Dose: 25 mg Documented By: DARIANA Albuterol Sulfate 2.5 mg/ (Ipratropium [place] 0.5 mg) 0 mg INHALE RQ4H WHILE AWAKE [facility] Last Admin: 08/02/22 12:01 Dose: 1 each Documented By: ALBA Empagliflozin (Empagliflozin 25 Mg Tablet) 25 mg PO DAILY [facility] Last Admin: 08/02/22 10:33 Dose: 25 mg Documented By: DELIO Enoxaparin Sodium (Enoxaparin Sodium 40 Mg/0.4 Ml Syringe) 40 mg SUBCUT Q24H [facility] Last Admin: 08/01/22 20:09 Dose: 40 mg Documented By: MICAELA Ergocalciferol (Ergocalciferol (Vitamin D2) 1,250 Mcg Capsule) 1,250 mcg PO ZAVALA [facility] Hydrochlorothiazide (Hydrochlorothiazide 25 Mg Tablet) 25 mg PO DAILY [facility] Last Admin: 08/02/22 07:48 Dose: 25 mg Documented By: DARIANA Ceftriaxone Sodium 1 gm/ (Sodium Chloride) 50 mls @ 100 mls/hr IV Q24H [facility] Insulin Human Lispro (Insulin Lispro 100 Unit/Ml 3 Ml Vial) 0 unit SUBCUT QIDACHS [facility]; Protocol Last Admin: 08/02/22 13:21 Dose: 2 unit Documented By: MAGUE Comments: waited for arrival of patient's lunch Isosorbide Mononitrate (Isosorbide Mononitrate 60 Mg Tab.Er.24h) 60 mg PO DAILY [facility]; Protocol Last Admin: 08/02/22 07:46 Dose: 60 mg Documented By: DARIANA Methylprednisolone Sodium Succinate (Methylprednisolone Sod Succ 40 Mg/Ml Vial) 40 mg IVPUSH Q12H [facility] Last Admin: 08/02/22 07:49 Dose: 40 mg Documented By: DARIANA Omeprazole (Omeprazole 20 Mg Capsule.) 20 mg PO DAILY@0630 [facility] Last Admin: 08/02/22 06:44 Dose: 20 mg Documented By: N-LITTA Ondansetron HCl (Ondansetron Hcl 4 Mg/2 Ml Vial) 4 mg IVPUSH Q8H PRN PRN Reason: Nausea and Vomiting Pharmacy Consult (Consult Rx Perform Med Rec) 1 each MISCELLANE ONCE PRN PRN Reason: Consult order Sertraline HCl (Sertraline Hcl 100 Mg Tablet) 200 mg PO DAILY [facility] Last Admin: 08/02/22 07:49 Dose: 200 mg Documented By: DARIANA Sodium Chloride (0.9 % Sodium Chloride Flush 3 Ml Syringe) 3 ml IVFLUSH QSHIFT [facility] Last Admin: 08/02/22 07:53 Dose: 3 ml Documented By: DARIANA Spironolactone (Spironolactone 25 Mg Tablet) 25 mg PO DAILY [facility] Last Admin: 08/02/22 07:47 Dose: 25 mg Documented By: DARIANA Tamsulosin HCl (Tamsulosin Hcl 0.4 Mg Capsule) 0.4 mg PO DAILY [facility] Last Admin: 08/02/22 07:49 Dose: 0.4 mg Documented By: DARIANA Labs 08/02/22 05:39 08/02/22 05:39 Labs: Laboratory Results - last 24 hr 08/01/22 08/01/22 08/01/22 15:25 15:25 15:37 MCV 90.7 MCH 28.2 MCHC 31.1 RDW 16.5 H Plt Count 143 L MPV 9.2 L Immature Gran % (Auto) 1.1 H Neut % (Auto) 76.4 H Lymph % (Auto) 13.9 L [place] % (Auto) 5.7 Eos % (Auto) 2.4 Baso % (Auto) 0.5 Lymph # (Auto) 1.0 L [place] # (Auto) 0.4 Eos # (Auto) 0.2 Baso # (Auto) 0.0 Abs Immat Gran (auto) 0.08 H Absolute Neuts (auto) 5.7 Absolute Nucleated RBC 0.000 Nucleated RBC % (auto) 0.0 VBG pH VBG pCO2 VBG pO2 VBG HCO3 VBG O2 Saturation VBG Base Excess Anion Gap Estim Creat Clear Calc Estimated GFR POC Glucose Random Glucose Lactic Acid Calcium Magnesium Total Bilirubin AST ALT Alkaline Phosphatase Troponin I High Sens B-Natriuretic Peptide Total Protein Albumin Respiratory Panel [place] See Note Adenovirus (Rapid PCR) Not Detected B.pert (TEM-PCR) Not Detected B.parapertussis DNA PCR Not Detected C. pneumoniae DNA (PCR) Not Detected Coronavirus OC43 (PCR) Not Detected Coronavirus HKU1 (PCR) Not Detected Coronavirus 229E (PCR) Not Detected Coronavirus NL63 (PCR) Not Detected Human Metapneumovir PCR Not Detected Influenza A (RT-PCR) Not Detected Influenza Type A (PCR) NEGATIVE Influenza B (RT-PCR) Not Detected Influenza Type B (PCR) NEGATIVE M. pneumoniae (PCR) Not Detected Parainfluenza 1 (PCR) Not Detected Parainfluenza 2 (PCR) Not Detected Parainfluenza 3 (PCR) Not Detected Parainfluenza 4 (PCR) Not Detected RSV (PCR) Not Detected RSV RNA Qual (PCR) NEGATIVE Entero/Rhino (PCR) Detected A SARS-CoV-2 RNA (RT-PCR) NEGATIVE Not Detected 08/01/22 08/01/22 08/01/22 15:37 15:37 15:37 MCV MCH MCHC RDW Plt Count MPV Immature Gran % (Auto) Neut % (Auto) Lymph % (Auto) [place] % (Auto) Eos % (Auto) Baso % (Auto) Lymph # (Auto) [place] # (Auto) Eos # (Auto) Baso # (Auto) Abs Immat Gran (auto) Absolute Neuts (auto) Absolute Nucleated RBC Nucleated RBC % (auto) VBG pH VBG pCO2 VBG pO2 VBG HCO3 VBG O2 Saturation VBG Base Excess Anion Gap 11 L Estim Creat Clear Calc 121.4 Estimated GFR > 60 POC Glucose Random Glucose 138 H Lactic Acid Calcium 9.7 Magnesium 1.8 Total Bilirubin 0.5 AST 16 ALT 14 Alkaline Phosphatase 103 Troponin I High Sens 12.5 B-Natriuretic Peptide 91 Total Protein 6.3 L Albumin 3.9 Respiratory Panel [place] Adenovirus (Rapid PCR) B.pert (TEM-PCR) B.parapertussis DNA PCR C. pneumoniae DNA (PCR) Coronavirus OC43 (PCR) Coronavirus HKU1 (PCR) Coronavirus 229E (PCR) Coronavirus NL63 (PCR) Human Metapneumovir PCR Influenza A (RT-PCR) Influenza Type A (PCR) Influenza B (RT-PCR) Influenza Type B (PCR) M. pneumoniae (PCR) Parainfluenza 1 (PCR) Parainfluenza 2 (PCR) Parainfluenza 3 (PCR) Parainfluenza 4 (PCR) RSV (PCR) RSV RNA Qual (PCR) Entero/Rhino (PCR) SARS-CoV-2 RNA (RT-PCR) 08/01/22 08/01/22 08/01/22 15:37 16:16 20:20 MCV MCH MCHC RDW Plt Count MPV Immature Gran % (Auto) Neut % (Auto) Lymph % (Auto) [place] % (Auto) Eos % (Auto) Baso % (Auto) Lymph # (Auto) [place] # (Auto) Eos # (Auto) Baso # (Auto) Abs Immat Gran (auto) Absolute Neuts (auto) Absolute Nucleated RBC Nucleated RBC % (auto) VBG pH 7.32 VBG pCO2 60 VBG pO2 62 VBG HCO3 31 H VBG O2 Saturation 86.0 VBG Base Excess 3.5 Anion Gap Estim Creat Clear Calc Estimated GFR POC Glucose 281 H Random Glucose Lactic Acid 1.5 Calcium Magnesium Total Bilirubin AST ALT Alkaline Phosphatase Troponin I High Sens B-Natriuretic Peptide Total Protein Albumin Respiratory Panel [place] Adenovirus (Rapid PCR) B.pert (TEM-PCR) B.parapertussis DNA PCR C. pneumoniae DNA (PCR) Coronavirus OC43 (PCR) Coronavirus HKU1 (PCR) Coronavirus 229E (PCR) Coronavirus NL63 (PCR) Human Metapneumovir PCR Influenza A (RT-PCR) Influenza Type A (PCR) Influenza B (RT-PCR) Influenza Type B (PCR) M. pneumoniae (PCR) Parainfluenza 1 (PCR) Parainfluenza 2 (PCR) Parainfluenza 3 (PCR) Parainfluenza 4 (PCR) RSV (PCR) RSV RNA Qual (PCR) Entero/Rhino (PCR) SARS-CoV-2 RNA (RT-PCR) 08/01/22 08/02/22 08/02/22 21:04 05:39 05:39 MCV 92.3 MCH 28.0 MCHC 30.3 L RDW 16.5 H Plt Count 161 MPV 9.9 Immature Gran % (Auto) Neut % (Auto) Lymph % (Auto) [place] % (Auto) Eos % (Auto) Baso % (Auto) Lymph # (Auto) [place] # (Auto) Eos # (Auto) Baso # (Auto) Abs Immat Gran (auto) Absolute Neuts (auto) Absolute Nucleated RBC 0.000 Nucleated RBC % (auto) 0.0 VBG pH VBG pCO2 VBG pO2 VBG HCO3 VBG O2 Saturation VBG Base Excess Anion Gap 12 Estim Creat Clear Calc 95.6 Estimated GFR > 60 POC Glucose 317 H Random Glucose 124 H Lactic Acid Calcium 9.5 Magnesium Total Bilirubin AST ALT Alkaline Phosphatase Troponin I High Sens B-Natriuretic Peptide Total Protein Albumin Respiratory Panel [place] Adenovirus (Rapid PCR) B.pert (TEM-PCR) B.parapertussis DNA PCR C. pneumoniae DNA (PCR) Coronavirus OC43 (PCR) Coronavirus HKU1 (PCR) Coronavirus 229E (PCR) Coronavirus NL63 (PCR) Human Metapneumovir PCR Influenza A (RT-PCR) Influenza Type A (PCR) Influenza B (RT-PCR) Influenza Type B (PCR) M. pneumoniae (PCR) Parainfluenza 1 (PCR) Parainfluenza 2 (PCR) Parainfluenza 3 (PCR) Parainfluenza 4 (PCR) RSV (PCR) RSV RNA Qual (PCR) Entero/Rhino (PCR) SARS-CoV-2 RNA (RT-PCR) 08/02/22 08/02/22 07:10 13:14 MCV MCH MCHC RDW Plt Count MPV Immature Gran % (Auto) Neut % (Auto) Lymph % (Auto) [place] % (Auto) Eos % (Auto) Baso % (Auto) Lymph # (Auto) [place] # (Auto) Eos # (Auto) Baso # (Auto) Abs Immat Gran (auto) Absolute Neuts (auto) Absolute Nucleated RBC Nucleated RBC % (auto) VBG pH VBG pCO2 VBG pO2 VBG HCO3 VBG O2 Saturation VBG Base Excess Anion Gap Estim Creat Clear Calc Estimated GFR POC Glucose 142 H 181 H Random Glucose Lactic Acid Calcium Magnesium Total Bilirubin AST ALT Alkaline Phosphatase Troponin I High Sens B-Natriuretic Peptide Total Protein Albumin Respiratory Panel [place] Adenovirus (Rapid PCR) B.pert (TEM-PCR) B.parapertussis DNA PCR C. pneumoniae DNA (PCR) Coronavirus OC43 (PCR) Coronavirus HKU1 (PCR) Coronavirus 229E (PCR) Coronavirus NL63 (PCR) Human Metapneumovir PCR Influenza A (RT-PCR) Influenza Type A (PCR) Influenza B (RT-PCR) Influenza Type B (PCR) M. pneumoniae (PCR) Parainfluenza 1 (PCR) Parainfluenza 2 (PCR) Parainfluenza 3 (PCR) Parainfluenza 4 (PCR) RSV (PCR) RSV RNA Qual (PCR) Entero/Rhino (PCR) SARS-CoV-2 RNA (RT-PCR) Assessment and Plan (1) Acute respiratory failure with hypoxia: Status: Acute (2) COPD (chronic obstructive pulmonary disease): Status: Acute (3) Pneumonia: Status: Acute Plan A 67 years old male with PMH of COPD, smoking, obesity, diabetes, HTN among others who presents to the hospital complaining of difficulty breathing for the last 5 days or so. Acute hypoxic respiratory failure 2/2 COPD exacerbation & CAP CXR showing LLL possible infiltrates pending blood cultures Duonebs, steroids and oxygen supplement Continue IV antibiotics wean O2 down as tolerated Type 2 DM Hold Trulicity SSI diabetic diet Hx CAD Continue ASA, statin , Isosorbide and Carvedilol HTN Amlodipine and HCT DVT PPz Lovenox PAtient will likely need overnight of inpatient care for hypoxic respiratory failure Time Spent With Patient Time: Total time managing care of this patient today ____ minutes. Quality Stroke Does the patient have a stroke diagnosis?: No VTE Prior VTE?: No VTE Risk Level:: Medical - moderate - high VTE Device Contraindication: Treatment Not Indicated VTE Drug Contraindication: N/A - Med Ordered
[2022-08-02] MEDS: cefTRIAXone sodium 1 GM in 0.9 % Sodium Chloride 50 ML IV (15:19)
[2022-08-02 18:37] LABS: Glucose, Whole Blood 157 mg/dL (60-115)
[2022-08-02] MEDS: Azithromycin 500 MG TABLET PO (19:10)
[2022-08-02] MEDS: Enoxaparin Sodium 40 MG/0.4 ML SYRINGE SUBCUT (19:11)
--- NOTE | 2022-08-02 19:19 | PC.NURSE ---
Pt resting quietly, no needs expressed.
[2022-08-02 21:10] LABS: Glucose, Whole Blood 186 mg/dL (60-115)
[2022-08-03] VITALS (9 sets, daily range): BP systolic 148–182; BP diastolic 70–89; PULSE 55–84; RESP 16–18; TEMP 36.3–36.5; O2SAT 87–92
[2022-08-03] MEDS: Omeprazole 20 MG CAPSULE.DR PO (05:06)
[2022-08-03 06:50] LABS: Anion Gap 15 (12-20); Blood Urea Nitrogen 39 mg/dL (9-16); Calcium 9.7 mg/dL (8.4-10.2); Carbon Dioxide 31 mmol/L (22-29); Chloride 104 mmol/L (96-108); Estimated Glomerular Filt Rate 48; Glucose Random 163 mg/dL (60-115); Potassium 5.4 mmol/L (3.3-5.1); Sodium 145 mmol/L (135-145)
[2022-08-03 07:40] LABS: Glucose, Whole Blood 161 mg/dL (60-115)
--- NOTE | 2022-08-03 08:09 | MHC.CDI.CONC ---
CDI Concurrent Query Documentation Clarification: PHYSICIAN'S DOCUMENTATION REQUEST Date of Query: 08/03/22 0810 Patient Name: Lamine Gallegos Admit Date: 08/01/22 Dear Doctor, A review of the medical record indicates additional documentation may be needed. Please review below and update the documentation accordingly. Clinical Indicators: Risk Factors/Clinical Indicators/Treatments Per MD progress note 08/02/22: Type 2 DM [facility] diabetic diet Blood sugar 317 Please clarify the following regarding Diabetes Mellitus (DM): Complications of DM: Hyperglycemia No complications of DM Other complication ? please specify Unable to determine Use of terms such as suspected, likely, concern for, or probable (associated with a specific diagnosis that is being evaluated, monitored, or treated as if it exists) are acceptable and can be coded in the inpatient setting, when documented at the time of discharge. Thank you, Linda Winchester RN Extension: [phone] Please use your independent medical judgment in providing your response. THIS QUERY IS PART OF THE PERMANENT MEDICAL RECORD Provider Response: Other Other Diagnosis: Hyperglycemia 2/2 DM II on steroids
[2022-08-03] MEDS: Insulin Lispro 100 UNIT/ML 3 ML VIAL SUBCUT ×4 (08:29→20:26)
[2022-08-03] MEDS: methylPREDNISolone Sod Succ 40 MG/ML VIAL IVPUSH ×2 (08:30→20:26)
[2022-08-03] MEDS: Atorvastatin Calcium 40 MG TABLET PO (08:31)
[2022-08-03] MEDS: Sodium Polystyrene Sulfon/Sorb 15 GM/60 ML ORAL.SUSP 30 GM PO (08:31)
[2022-08-03] MEDS: Enoxaparin Sodium 40 MG/0.4 ML SYRINGE 30 MG SUBCUT (08:31)
[2022-08-03] MEDS: Aspirin Enteric Coated 81 MG TABLET.DR PO (08:32)
[2022-08-03] MEDS: Sertraline HCL 100 MG TABLET 200 MG PO (08:32)
[2022-08-03] MEDS: Empagliflozin 25 MG TABLET PO (08:32)
[2022-08-03] MEDS: buPROPion HCl XL 150 MG TAB.ER.24H PO (08:32)
[2022-08-03] MEDS: Tamsulosin HCL 0.4 MG CAPSULE PO (08:32)
[2022-08-03] MEDS: Isosorbide Mononitrate 60 MG TAB.ER.24H PO (08:32)
[2022-08-03] MEDS: carvediloL 25 MG TABLET PO ×2 (08:32→20:26)
[2022-08-03] MEDS: amLODIPine Besylate 10 MG TABLET PO (08:33)
[2022-08-03] MEDS: hydrALAZINE HCl 25 MG TABLET PO ×3 (08:33→20:26)
[2022-08-03] MEDS: allopurinoL 100 MG TABLET PO (08:33)
[2022-08-03] MEDS: 0.9 % Sodium Chloride Flush 3 ML SYRINGE IVFLUSH ×2 (08:34→17:10)
--- NOTE | 2022-08-03 11:12 | MHC.CM.PN ---
Per ROUNDS discussion, Patient is not yet medically cleared for dc (IV Solu Medrol); home is the plan and CM will continue to follow.
[2022-08-03 11:55] LABS: Glucose, Whole Blood 176 mg/dL (60-115)
--- NOTE | 2022-08-03 13:02 | P.PNIM_ITS ---
Subjective Subjective Date of Service: 08/03/22 Interval History: Seen and evaluated this morning Improving dyspnea and O2 sats dropping to is the 90 Overall feels mildly better No reported overnight events Review of Systems No fever or chills but has generalized weakness No chest pain, palpitation shortness of breath and coughing No abdominal pain, nausea or vomiting No urinary symptoms No any rash or wounds Physical Exam Vital Signs: Vital Signs: Last Vital Signs Temp 97.6 F 08/03/22 07:13 Pulse 55 08/03/22 11:52 Resp 16 08/03/22 11:52 BP 182/89 H 08/03/22 07:13 Pulse Ox 90 L 08/03/22 07:13 O2 Del Method 08/03/22 07:13 O2 Flow Rate 4 08/03/22 07:13 BMI result Body Mass Index 38.5 Const: Other: Constitutional : Awake, interactive, not in distress Neck : Normal inspection, Supple Cardiovascular : RRR, no JVP, no lower extremity edema Respiratory : decreased bilateral air entry, catheter expiratory wheezes, not an distress, on oxygen supplement Gastrointestinal: soft, lax, Normal bowel sounds, Non tender Skin : Warm, Dry Neurological : Alert & oriented x3, No focal deficit Objective Data Active Medications Acetaminophen (Acetaminophen 325 Mg Tablet) 650 mg PO Q6H PRN PRN Reason: Pain, Mild (Pain Scale 1-3) Albuterol Sulfate (Albuterol Sulfate (0.083%) 2.5 Mg/3 Ml Vial.Neb) 2.5 mg INHALE Q4H PRN PRN Reason: Shortness of Breath/Wheezing Allopurinol (Allopurinol 100 Mg Tablet) 100 mg PO DAILY [facility] Last Admin: 08/03/22 08:33 Dose: 100 mg Documented By: TIMOTHY Amlodipine Besylate (Amlodipine Besylate 10 Mg Tablet) 10 mg PO DAILY [facility]; Protocol Last Admin: 08/03/22 08:33 Dose: 10 mg Documented By: TIMOTHY Aspirin (Aspirin Enteric Coated 81 Mg Tablet.) 81 mg PO DAILY [facility] Last Admin: 08/03/22 08:32 Dose: 81 mg Documented By: TIMOTHY Atorvastatin Calcium (Atorvastatin Calcium 40 Mg Tablet) 40 mg PO DAILY [facility] Last Admin: 08/03/22 08:31 Dose: 40 mg Documented By: TIMOTHY Azithromycin (Azithromycin 500 Mg Tablet) 500 mg PO Q24H [facility] Last Admin: 08/02/22 19:10 Dose: 500 mg Documented By: N-LITTA Bupropion HCl (Bupropion Hcl Xl 150 Mg Tab.Er.24h) 150 mg PO DAILY [facility] Last Admin: 08/03/22 08:32 Dose: 150 mg Documented By: TIMOTHY Carvedilol (Carvedilol 25 Mg Tablet) 25 mg PO BID [facility]; Protocol Last Admin: 08/03/22 08:32 Dose: 25 mg Documented By: TIMOTHY Albuterol Sulfate 2.5 mg/ (Ipratropium Brea 0.5 mg) 0 mg INHALE RQ4H WHILE AWAKE [facility] Last Admin: 08/03/22 11:43 Dose: 2.5 each Documented By: JASKARAN Empagliflozin (Empagliflozin 25 Mg Tablet) 25 mg PO DAILY [facility] Last Admin: 08/03/22 08:32 Dose: 25 mg Documented By: TIMOTHY Enoxaparin Sodium (Enoxaparin Sodium 40 Mg/0.4 Ml Syringe) 30 mg SUBCUT Q24H [facility] Last Admin: 08/03/22 08:31 Dose: 30 mg Documented By: TIMOTHY Ergocalciferol (Ergocalciferol (Vitamin D2) 1,250 Mcg Capsule) 1,250 mcg PO ZAVALA [facility] Hydralazine HCl (Hydralazine Hcl 25 Mg Tablet) 25 mg PO TID [facility]; Protocol Last Admin: 08/03/22 08:33 Dose: 25 mg Documented By: TIMOTHY Hydrochlorothiazide (Hydrochlorothiazide 25 Mg Tablet) 25 mg PO DAILY [facility] Last Admin: 08/02/22 07:48 Dose: 25 mg Documented By: DARIANA Ceftriaxone Sodium 1 gm/ (Sodium Chloride) 50 mls @ 100 mls/hr IV Q24H [facility] Last Infusion: 08/02/22 16:16 Dose: 0 mls/hr Documented By: DELIO Insulin Human Lispro (Insulin Lispro 100 Unit/Ml 3 Ml Vial) 0 unit SUBCUT QIDACHS [facility]; Protocol Last Admin: 08/03/22 12:12 Dose: 2 unit Documented By: TIMOTHY Isosorbide Mononitrate (Isosorbide Mononitrate 60 Mg Tab.Er.24h) 60 mg PO DAILY [facility]; Protocol Last Admin: 08/03/22 08:32 Dose: 60 mg Documented By: TIMOTHY Methylprednisolone Sodium Succinate (Methylprednisolone Sod Succ 40 Mg/Ml Vial) 40 mg IVPUSH Q12H [facility] Last Admin: 08/03/22 08:30 Dose: 40 mg Documented By: TIMOTHY Omeprazole (Omeprazole 20 Mg Capsule.Dr) 20 mg PO DAILY@0630 [facility] Last Admin: 08/03/22 05:06 Dose: 20 mg Documented By: LELA Ondansetron HCl (Ondansetron Hcl 4 Mg/2 Ml Vial) 4 mg IVPUSH Q8H PRN PRN Reason: Nausea and Vomiting Pharmacy Consult (Consult Rx Perform Med Rec) 1 each MISCELLANE ONCE PRN PRN Reason: Consult order Sertraline HCl (Sertraline Hcl 100 Mg Tablet) 200 mg PO DAILY [facility] Last Admin: 08/03/22 08:32 Dose: 200 mg Documented By: TIMOTHY Sodium Chloride (0.9 % Sodium Chloride Flush 3 Ml Syringe) 3 ml IVFLUSH QSHIFT [facility] Last Admin: 08/03/22 08:34 Dose: 3 ml Documented By: TIMOTHY Spironolactone (Spironolactone 25 Mg Tablet) 25 mg PO DAILY [facility] Last Admin: 08/02/22 07:47 Dose: 25 mg Documented By: DARIANA Tamsulosin HCl (Tamsulosin Hcl 0.4 Mg Capsule) 0.4 mg PO DAILY [facility] Last Admin: 08/03/22 08:32 Dose: 0.4 mg Documented By: TIMOTHY Labs 08/02/22 05:39 08/03/22 06:11 Labs: Laboratory Results - last 24 hr 08/02/22 08/02/22 08/02/22 13:14 18:31 21:06 Anion Gap Estim Creat Clear Calc Estimated GFR POC Glucose 181 H 157 H 186 H Random Glucose Calcium 08/03/22 08/03/22 08/03/22 06:11 07:19 11:19 Anion Gap 15 Estim Creat Clear Calc 74.0 Estimated GFR 48 POC Glucose 161 H 176 H Random Glucose 163 H Calcium 9.7 Microbiology Microbiology Results: Microbiology 08/01/22 15:37 Blood Culture - Preliminary Blood - Venous No growth after 24 hours. 08/01/22 15:25 Blood Culture - Preliminary Blood - Venous No growth after 24 hours. Assessment and Plan (1) Pneumonia: Status: Acute (2) Acute respiratory failure with hypoxia: Status: Acute (3) COPD (chronic obstructive pulmonary disease): Status: Acute Plan A 67 years old male with PMH of COPD, smoking, obesity, diabetes, HTN among others who presents to the hospital complaining of difficulty breathing for the last 5 days or so. Acute hypoxic respiratory failure 2/2 COPD exacerbation & CAP CXR showing LLL possible infiltrates pending blood cultures Duonebs, steroids and oxygen supplement Continue IV antibiotics wean O2 down as tolerated Hyperglycemia in Type 2 DM From steroid usage Hold Trulicity SSI, start Lantus 15 units daily diabetic diet Hx CAD Continue ASA, statin , Isosorbide and Carvedilol HTN Amlodipine and HCT DVT PPz Lovenox PAtient will likely need overnight of inpatient care for hypoxic respiratory failure Time Spent With Patient Time: Total time managing care of this patient today ____ minutes. Quality Stroke Does the patient have a stroke diagnosis?: No VTE Prior VTE?: No VTE Risk Level:: Medical - moderate - high VTE Device Contraindication: Treatment Not Indicated VTE Drug Contraindication: N/A - Med Ordered
[2022-08-03 13:21] LABS: Anion Gap 16 (12-20); Blood Urea Nitrogen 40 mg/dL (9-16); Calcium 9.3 mg/dL (8.4-10.2); Carbon Dioxide 29 mmol/L (22-29); Chloride 103 mmol/L (96-108); Creatinine Clr Calc Pharmacy 91.5; Estimated Glomerular Filt Rate > 60; Glucose Random 180 mg/dL (60-115); Potassium 4.6 mmol/L (3.3-5.1); Sodium 143 mmol/L (135-145)
[2022-08-03] MEDS: Insulin Glargine,Hum.rec.anlog 100 UNIT/ML 10 ML VIAL 15 UNIT SUBCUT (14:59)
[2022-08-03] MEDS: cefTRIAXone sodium 1 GM in 0.9 % Sodium Chloride 50 ML IV (14:59)
[2022-08-03 16:19] LABS: Glucose, Whole Blood 186 mg/dL (60-115)
[2022-08-03] MEDS: Azithromycin 500 MG TABLET PO (18:17)
[2022-08-03 20:02] LABS: Glucose, Whole Blood 206 mg/dL (60-115)
[2022-08-04] VITALS (10 sets, daily range): BP systolic 145–177; BP diastolic 72–88; PULSE 54–85; RESP 16–20; TEMP 36.1–37.1; O2SAT 90–94
[2022-08-04] MEDS: 0.9 % Sodium Chloride Flush 3 ML SYRINGE IVFLUSH ×4 (01:37→19:36)
[2022-08-04] MEDS: Omeprazole 20 MG CAPSULE.DR PO (06:01)
[2022-08-04] MEDS: Isosorbide Mononitrate 60 MG TAB.ER.24H PO (06:35)
[2022-08-04] MEDS: amLODIPine Besylate 10 MG TABLET PO (06:35)
[2022-08-04] MEDS: carvediloL 25 MG TABLET PO ×2 (06:36→19:47)
[2022-08-04] MEDS: hydrALAZINE HCl 25 MG TABLET PO ×3 (06:36→19:34)
--- NOTE | 2022-08-04 06:42 | PC.NURSE ---
Patient's BP elevated although asymptomatic. Dr. Alvarado notified. Administered am BP meds early as per , BP 184/89 prior to meds.. Will continue to monitor.
[2022-08-04 07:16] LABS: Anion Gap 12 (12-20); Blood Urea Nitrogen 39 mg/dL (9-16); Calcium 9.2 mg/dL (8.4-10.2); Carbon Dioxide 33 mmol/L (22-29); Chloride 102 mmol/L (96-108); Creatinine Clr Calc Pharmacy 87.1; Estimated Glomerular Filt Rate 59; Glucose Random 147 mg/dL (60-115); Potassium 4.3 mmol/L (3.3-5.1); Sodium 143 mmol/L (135-145)
[2022-08-04 07:36] LABS: Glucose, Whole Blood 155 mg/dL (60-115)
[2022-08-04] MEDS: allopurinoL 100 MG TABLET PO (09:03)
[2022-08-04] MEDS: Atorvastatin Calcium 40 MG TABLET PO (09:03)
[2022-08-04] MEDS: Tamsulosin HCL 0.4 MG CAPSULE PO (09:03)
[2022-08-04] MEDS: Empagliflozin 25 MG TABLET PO (09:03)
[2022-08-04] MEDS: Enoxaparin Sodium 40 MG/0.4 ML SYRINGE 30 MG SUBCUT (09:03)
[2022-08-04] MEDS: buPROPion HCl XL 150 MG TAB.ER.24H PO (09:03)
[2022-08-04] MEDS: Sertraline HCL 100 MG TABLET 200 MG PO (09:03)
[2022-08-04] MEDS: Aspirin Enteric Coated 81 MG TABLET.DR PO (09:03)
[2022-08-04] MEDS: Insulin Lispro 100 UNIT/ML 3 ML VIAL SUBCUT ×4 (09:04→19:47)
[2022-08-04] MEDS: Insulin Glargine,Hum.rec.anlog 100 UNIT/ML 10 ML VIAL 15 UNIT SUBCUT (09:05)
[2022-08-04] MEDS: methylPREDNISolone Sod Succ 40 MG/ML VIAL IVPUSH ×2 (09:06→19:34)
[2022-08-04] MEDS: Furosemide 40 MG/4 ML VIAL IVPUSH (10:51)
[2022-08-04 11:21] LABS: Glucose, Whole Blood 219 mg/dL (60-115)
--- NOTE | 2022-08-04 12:58 | HO.PM.IMPN ---
Subjective Subjective Date of Service: 08/04/22 Interval History: the patient was seen and evaluated this morning Laying in bed, feels slight improvement but still requiring oxygen Tested positive for rhinovirus Reporting no coughing but exertional shortness of breath No reported other overnight events. Review of Systems Review of Systems: Yes all other systems are reviewed and are negative Physical Exam Vital Signs: Vital Signs: Last Vital Signs Temp 98.3 F 08/04/22 12:55 Pulse 85 08/04/22 12:55 Resp 16 08/04/22 12:55 BP 145/76 H 08/04/22 12:55 Pulse Ox 91 L 08/04/22 12:55 O2 Del Method 08/04/22 12:55 O2 Flow Rate 4 08/04/22 12:55 BMI result Body Mass Index 38.5 Const: Other: Constitutional : Awake, interactive, not in distress Neck : Normal inspection, Supple Cardiovascular : RRR, no JVP, no lower extremity edema Respiratory : decreased bilateral air entry, catheter expiratory wheezes, not an distress, on oxygen supplement Gastrointestinal:? soft, lax, Normal bowel sounds, Non tender Skin : Warm, Dry Neurological : Alert & oriented x3, No focal deficit Objective Data Active Medications Acetaminophen (Acetaminophen 325 Mg Tablet) 650 mg PO Q6H PRN PRN Reason: Pain, Mild (Pain Scale 1-3) Albuterol Sulfate (Albuterol Sulfate (0.083%) 2.5 Mg/3 Ml Vial.Neb) 2.5 mg INHALE Q4H PRN PRN Reason: Shortness of Breath/Wheezing Allopurinol (Allopurinol 100 Mg Tablet) 100 mg PO DAILY [facility] Last Admin: 08/04/22 09:03 Dose: 100 mg Documented By: JOSH Amlodipine Besylate (Amlodipine Besylate 10 Mg Tablet) 10 mg PO DAILY [facility]; Protocol Last Admin: 08/04/22 06:35 Dose: 10 mg Documented By: LEOLA Aspirin (Aspirin Enteric Coated 81 Mg Tablet.) 81 mg PO DAILY [facility] Last Admin: 08/04/22 09:03 Dose: 81 mg Documented By: JOSH Atorvastatin Calcium (Atorvastatin Calcium 40 Mg Tablet) 40 mg PO DAILY [facility] Last Admin: 08/04/22 09:03 Dose: 40 mg Documented By: JOSH Azithromycin (Azithromycin 500 Mg Tablet) 500 mg PO Q24H [facility] Last Admin: 08/03/22 18:17 Dose: 500 mg Documented By: TIMOTHY Bupropion HCl (Bupropion Hcl Xl 150 Mg Tab.Er.24h) 150 mg PO DAILY [facility] Last Admin: 08/04/22 09:03 Dose: 150 mg Documented By: JOSH Carvedilol (Carvedilol 25 Mg Tablet) 25 mg PO BID [facility]; Protocol Last Admin: 08/04/22 06:36 Dose: 25 mg Documented By: LEOLA Albuterol Sulfate 2.5 mg/ (Ipratropium Lyons 0.5 mg) 0 mg INHALE RQ4H WHILE AWAKE [facility] Last Admin: 08/04/22 11:19 Dose: Not Given Documented By: ALBA Non-Admin Reason: pt not avail Empagliflozin (Empagliflozin 25 Mg Tablet) 25 mg PO DAILY [facility] Last Admin: 08/04/22 09:03 Dose: 25 mg Documented By: JOSH Enoxaparin Sodium (Enoxaparin Sodium 40 Mg/0.4 Ml Syringe) 30 mg SUBCUT Q24H [facility] Last Admin: 08/04/22 09:03 Dose: 30 mg Documented By: JOSH Ergocalciferol (Ergocalciferol (Vitamin D2) 1,250 Mcg Capsule) 1,250 mcg PO ZAVALA [facility] Hydralazine HCl (Hydralazine Hcl 25 Mg Tablet) 25 mg PO TID [facility]; Protocol Last Admin: 08/04/22 06:36 Dose: 25 mg Documented By: LEOLA Hydrochlorothiazide (Hydrochlorothiazide 25 Mg Tablet) 25 mg PO DAILY [facility] Last Admin: 08/02/22 07:48 Dose: 25 mg Documented By: DARIANA Ceftriaxone Sodium 1 gm/ (Sodium Chloride) 50 mls @ 100 mls/hr IV Q24H [facility] Last Infusion: 08/03/22 15:28 Dose: 0 mls/hr Documented By: TIMOTHY Insulin Glargine (Insulin Glargine,Hum.Rec.Anlog 100 Unit/Ml 10 Ml Vial) 15 unit SUBCUT DAILY [facility] Last Admin: 08/04/22 09:05 Dose: 15 unit Documented By: JOSH Insulin Human Lispro (Insulin Lispro 100 Unit/Ml 3 Ml Vial) 0 unit SUBCUT QIDACHS [facility]; Protocol Last Admin: 08/04/22 11:56 Dose: 4 unit Documented By: JOSH Isosorbide Mononitrate (Isosorbide Mononitrate 60 Mg Tab.Er.24h) 60 mg PO DAILY [facility]; Protocol Last Admin: 08/04/22 06:35 Dose: 60 mg Documented By: LEOLA Methylprednisolone Sodium Succinate (Methylprednisolone Sod Succ 40 Mg/Ml Vial) 40 mg IVPUSH Q12H [facility] Last Admin: 08/04/22 09:06 Dose: 40 mg Documented By: JOSH Omeprazole (Omeprazole 20 Mg Capsule.Dr) 20 mg PO DAILY@0630 [facility] Last Admin: 08/04/22 06:01 Dose: 20 mg Documented By: LEOLA Ondansetron HCl (Ondansetron Hcl 4 Mg/2 Ml Vial) 4 mg IVPUSH Q8H PRN PRN Reason: Nausea and Vomiting Pharmacy Consult (Consult Rx Perform Med Rec) 1 each MISCELLANE ONCE PRN PRN Reason: Consult order Sertraline HCl (Sertraline Hcl 100 Mg Tablet) 200 mg PO DAILY [facility] Last Admin: 08/04/22 09:03 Dose: 200 mg Documented By: JOSH Sodium Chloride (0.9 % Sodium Chloride Flush 3 Ml Syringe) 3 ml IVFLUSH QSHIFT [facility] Last Admin: 08/04/22 09:05 Dose: 3 ml Documented By: JOSH Spironolactone (Spironolactone 25 Mg Tablet) 25 mg PO DAILY [facility] Last Admin: 08/02/22 07:47 Dose: 25 mg Documented By: DARIANA Tamsulosin HCl (Tamsulosin Hcl 0.4 Mg Capsule) 0.4 mg PO DAILY [facility] Last Admin: 08/04/22 09:03 Dose: 0.4 mg Documented By: JOSH Labs 08/02/22 05:39 08/04/22 05:54 Labs: Laboratory Results - last 24 hr 08/03/22 08/03/22 08/03/22 12:52 16:15 19:57 Anion Gap 16 Estim Creat Clear Calc 91.5 Estimated GFR > 60 POC Glucose 186 H 206 H Random Glucose 180 H Calcium 9.3 08/04/22 08/04/22 08/04/22 05:54 07:30 11:13 Anion Gap 12 Estim Creat Clear Calc 87.1 Estimated GFR 59 POC Glucose 155 H 219 H Random Glucose 147 H Calcium 9.2 Microbiology Microbiology Results: Microbiology 08/01/22 15:37 Blood Culture - Preliminary Blood - Venous No growth after 48 hours. 08/01/22 15:25 Blood Culture - Preliminary Blood - Venous No growth after 48 hours. Assessment and Plan (1) Acute respiratory failure with hypoxia: Status: Acute (2) Pneumonia: Status: Acute (3) COPD exacerbation: Status: Acute Plan A 67 years old male with PMH of COPD, smoking, obesity, diabetes, HTN among others who presents to the hospital complaining of difficulty breathing for the last 5 days or so.? Acute hypoxic respiratory failure 2/2 COPD exacerbation & CAP Tested positive for rhinovirus Repeated CXR showing patchy infiltrate in both lower lobes Negative blood cultures Duonebs, steroids and oxygen supplement Continue IV antibiotics wean O2 down as tolerated Incentive spirometry Hyperglycemia in Type 2 DM From steroid usage ?Hold Trulicity SSI, start Lantus 15 units daily diabetic diet Hx CAD, diastolic CHF Continue ASA, statin , Isosorbide and Carvedilol To give a dose of Lasix HTN Amlodipine and HCT DVT PPz Lovenox PAtient will likely need overnight of inpatient care for hypoxic respiratory failure pending weaning him off oxygen Time Spent With Patient Time: Total time managing care of this patient today ____ minutes. Quality Stroke Does the patient have a stroke diagnosis?: No VTE Prior VTE?: No VTE Risk Level:: Medical - moderate - high VTE Device Contraindication: Treatment Not Indicated VTE Drug Contraindication: N/A - Med Ordered
[2022-08-04] MEDS: Furosemide 20 MG/2 ML VIAL IVPUSH (13:53)
[2022-08-04] MEDS: cefTRIAXone sodium 1 GM in 0.9 % Sodium Chloride 50 ML IV (14:00)
[2022-08-04 16:13] LABS: Glucose, Whole Blood 242 mg/dL (60-115)
[2022-08-04] MEDS: Azithromycin 500 MG TABLET PO (18:12)
[2022-08-04 20:08] LABS: Glucose, Whole Blood 183 mg/dL (60-115)
[2022-08-04] MEDS: Throat Lozenge, Medicated LOZENGE 1 LOZENGE MUCOUS MEM (22:27)
[2022-08-05] VITALS (10 sets, daily range): BP systolic 129–169; BP diastolic 72–89; PULSE 54–80; RESP 18–20; TEMP 36.1–37; O2SAT 86–95
--- NOTE | 2022-08-05 00:14 | PC.NURSE ---
Upon entering room to give pt PRN cough drop that he requested stated that he was leaving in the morning no matter what do not come in here at 3am 5am 6am Aide had attempted midnight vital signs he told her to leave and said not be disturbed again. Pt on cont pulseox sat 90%. Vital stable earlier in evening , did take PM meds. Will not disturb overnight per pt refusal/request.
[2022-08-05 07:52] LABS: Glucose, Whole Blood 137 mg/dL (60-115)
[2022-08-05] MEDS: allopurinoL 100 MG TABLET PO (08:48)
[2022-08-05] MEDS: hydrALAZINE HCl 25 MG TABLET PO ×3 (08:48→20:44)
[2022-08-05] MEDS: buPROPion HCl XL 150 MG TAB.ER.24H PO (08:48)
[2022-08-05] MEDS: Enoxaparin Sodium 40 MG/0.4 ML SYRINGE 30 MG SUBCUT (08:48)
[2022-08-05] MEDS: carvediloL 25 MG TABLET PO ×2 (08:48→20:44)
[2022-08-05] MEDS: Atorvastatin Calcium 40 MG TABLET PO (08:48)
[2022-08-05] MEDS: Empagliflozin 25 MG TABLET PO (08:48)
[2022-08-05] MEDS: 0.9 % Sodium Chloride Flush 3 ML SYRINGE IVFLUSH ×3 (08:48→20:45)
[2022-08-05] MEDS: amLODIPine Besylate 10 MG TABLET PO (08:48)
[2022-08-05] MEDS: Insulin Glargine,Hum.rec.anlog 100 UNIT/ML 10 ML VIAL 15 UNIT SUBCUT (08:49)
[2022-08-05] MEDS: Throat Lozenge, Medicated LOZENGE 1 LOZENGE MUCOUS MEM (08:49)
[2022-08-05] MEDS: Tamsulosin HCL 0.4 MG CAPSULE PO (08:49)
[2022-08-05] MEDS: Isosorbide Mononitrate 60 MG TAB.ER.24H PO (08:49)
[2022-08-05] MEDS: Aspirin Enteric Coated 81 MG TABLET.DR PO (08:49)
[2022-08-05] MEDS: Sertraline HCL 100 MG TABLET 200 MG PO (08:49)
[2022-08-05] MEDS: methylPREDNISolone Sod Succ 40 MG/ML VIAL IVPUSH ×2 (08:49→20:45)
[2022-08-05] MEDS: Ergocalciferol (Vitamin D2) 1,250 MCG CAPSULE 1250 MCG PO (09:00)
[2022-08-05 11:37] LABS: Glucose, Whole Blood 227 mg/dL (60-115)
[2022-08-05] MEDS: Insulin Lispro 100 UNIT/ML 3 ML VIAL SUBCUT ×3 (11:42→20:45)
--- NOTE | 2022-08-05 13:09 | HO.PM.IMPN ---
Subjective Subjective Date of Service: 08/05/22 Interval History: the patient was seen and evaluated this morning Laying in bed, feels slight improvement but still requiring oxygen exertional shortness of breath No reported other overnight events. Review of Systems Review of Systems: Yes all other systems are reviewed and are negative Physical Exam Vital Signs: Vital Signs: Last Vital Signs Temp 97.4 F 08/05/22 07:41 Pulse 54 08/05/22 11:21 Resp 18 08/05/22 11:21 BP 162/88 H 08/05/22 07:41 Pulse Ox 92 08/05/22 07:41 O2 Del Method 08/05/22 07:41 O2 Flow Rate 3 08/05/22 07:41 BMI result Body Mass Index 38.5 Const: Other: Constitutional : Awake, interactive, not in distress Neck : Normal inspection, Supple Cardiovascular : RRR, no JVP, no lower extremity edema Respiratory : decreased bilateral air entry, catheter expiratory wheezes, not an distress, on oxygen supplement Gastrointestinal:? soft, lax, Normal bowel sounds, Non tender Skin : Warm, Dry Neurological : Alert & oriented x3, No focal deficit Objective Data Active Medications Acetaminophen (Acetaminophen 325 Mg Tablet) 650 mg PO Q6H PRN PRN Reason: Pain, Mild (Pain Scale 1-3) Albuterol Sulfate (Albuterol Sulfate (0.083%) 2.5 Mg/3 Ml Vial.Neb) 2.5 mg INHALE Q4H PRN PRN Reason: Shortness of Breath/Wheezing Allopurinol (Allopurinol 100 Mg Tablet) 100 mg PO DAILY [facility] Last Admin: 08/05/22 08:48 Dose: 100 mg Documented By: JOSH Amlodipine Besylate (Amlodipine Besylate 10 Mg Tablet) 10 mg PO DAILY [facility]; Protocol Last Admin: 08/05/22 08:48 Dose: 10 mg Documented By: JOSH Aspirin (Aspirin Enteric Coated 81 Mg Tablet.) 81 mg PO DAILY [facility] Last Admin: 08/05/22 08:49 Dose: 81 mg Documented By: JOSH Atorvastatin Calcium (Atorvastatin Calcium 40 Mg Tablet) 40 mg PO DAILY [facility] Last Admin: 08/05/22 08:48 Dose: 40 mg Documented By: JOSH Azithromycin (Azithromycin 500 Mg Tablet) 500 mg PO Q24H [facility] Last Admin: 08/04/22 18:12 Dose: 500 mg Documented By: JOSH Benzocaine (Throat Lozenge, Medicated Lozenge) 1 lozenge MUCOUS MEM Q2H PRN PRN Reason: Sore Throat Last Admin: 08/05/22 08:49 Dose: 1 lozenge Documented By: JOSH Benzonatate (Benzonatate 100 Mg Capsule) 200 mg PO TID PRN PRN Reason: cough Bupropion HCl (Bupropion Hcl Xl 150 Mg Tab.Er.24h) 150 mg PO DAILY [facility] Last Admin: 08/05/22 08:48 Dose: 150 mg Documented By: JOSH Carvedilol (Carvedilol 25 Mg Tablet) 25 mg PO BID [facility]; Protocol Last Admin: 08/05/22 08:48 Dose: 25 mg Documented By: JOSH Albuterol Sulfate 2.5 mg/ (Ipratropium [place] 0.5 mg) 0 mg INHALE RQ4H WHILE AWAKE [facility] Last Admin: 08/05/22 11:19 Dose: 1 each Documented By: JUAN PABLO Empagliflozin (Empagliflozin 25 Mg Tablet) 25 mg PO DAILY [facility] Last Admin: 08/05/22 08:48 Dose: 25 mg Documented By: JOSH Enoxaparin Sodium (Enoxaparin Sodium 40 Mg/0.4 Ml Syringe) 30 mg SUBCUT Q24H [facility] Last Admin: 08/05/22 08:48 Dose: 30 mg Documented By: JOSH Ergocalciferol (Ergocalciferol (Vitamin D2) 1,250 Mcg Capsule) 1,250 mcg PO ZAVALA [facility] Last Admin: 08/05/22 09:00 Dose: 1,250 mcg Documented By: JOSH Hydralazine HCl (Hydralazine Hcl 25 Mg Tablet) 25 mg PO TID [facility]; Protocol Last Admin: 08/05/22 08:48 Dose: 25 mg Documented By: JOSH Hydrochlorothiazide (Hydrochlorothiazide 25 Mg Tablet) 25 mg PO DAILY [facility] Last Admin: 08/02/22 07:48 Dose: 25 mg Documented By: DARIANA Ceftriaxone Sodium 1 gm/ (Sodium Chloride) 50 mls @ 100 mls/hr IV Q24H [facility] Last Infusion: 08/04/22 14:56 Dose: 0 mls/hr Documented By: JOSH Insulin Glargine (Insulin Glargine,Hum.Rec.Anlog 100 Unit/Ml 10 Ml Vial) 15 unit SUBCUT DAILY [facility] Last Admin: 08/05/22 08:49 Dose: 15 unit Documented By: JOSH Insulin Human Lispro (Insulin Lispro 100 Unit/Ml 3 Ml Vial) 0 unit SUBCUT QIDACHS [facility]; Protocol Last Admin: 08/05/22 11:42 Dose: 6 unit Documented By: JOSH Isosorbide Mononitrate (Isosorbide Mononitrate 60 Mg Tab.Er.24h) 60 mg PO DAILY [facility]; Protocol Last Admin: 08/05/22 08:49 Dose: 60 mg Documented By: JOSH Methylprednisolone Sodium Succinate (Methylprednisolone Sod Succ 40 Mg/Ml Vial) 40 mg IVPUSH Q12H [facility] Last Admin: 08/05/22 08:49 Dose: 40 mg Documented By: JOSH Omeprazole (Omeprazole 20 Mg Capsule.Dr) 20 mg PO DAILY@0630 [facility] Last Admin: 08/05/22 05:19 Dose: Not Given Documented By: ANNIE Non-Admin Reason: pt refused to be woken up Ondansetron HCl (Ondansetron Hcl 4 Mg/2 Ml Vial) 4 mg IVPUSH Q8H PRN PRN Reason: Nausea and Vomiting Pharmacy Consult (Consult Rx Perform Med Rec) 1 each MISCELLANE ONCE PRN PRN Reason: Consult order Sertraline HCl (Sertraline Hcl 100 Mg Tablet) 200 mg PO DAILY [facility] Last Admin: 08/05/22 08:49 Dose: 200 mg Documented By: JOSH Sodium Chloride (0.9 % Sodium Chloride Flush 3 Ml Syringe) 3 ml IVFLUSH QSHIFT [facility] Last Admin: 08/05/22 08:48 Dose: 3 ml Documented By: JOSH Spironolactone (Spironolactone 25 Mg Tablet) 25 mg PO DAILY [facility] Last Admin: 08/02/22 07:47 Dose: 25 mg Documented By: DARIANA Tamsulosin HCl (Tamsulosin Hcl 0.4 Mg Capsule) 0.4 mg PO DAILY [facility] Last Admin: 08/05/22 08:49 Dose: 0.4 mg Documented By: JOSH Labs 08/02/22 05:39 08/04/22 05:54 Labs: Laboratory Results - last 24 hr 08/04/22 08/04/22 08/05/22 15:11 19:19 07:44 POC Glucose 242 H 183 H 137 H 08/05/22 11:22 POC Glucose 227 H Assessment and Plan (1) COPD exacerbation: Status: Acute (2) Pneumonia: Status: Acute (3) Acute respiratory failure with hypoxia: Status: Acute Plan A 67 years old male with PMH of COPD, smoking, obesity, diabetes, HTN among others who presents to the hospital complaining of difficulty breathing for the last 5 days or so.? Acute hypoxic respiratory failure 2/2 COPD exacerbation & CAP Tested positive for rhinovirus Repeated CXR showing patchy infiltrate in both lower lobes Negative blood cultures Duonebs, steroids and oxygen supplement Continue antibiotics wean O2 down as tolerated Incentive spirometry Hyperglycemia in Type 2 DM From steroid usage ?Hold Trulicity SSI, Lantus 15 units daily diabetic diet Hx CAD, diastolic CHF Continue ASA, statin , Isosorbide and Carvedilol To give a dose of Lasix HTN Amlodipine and HCT DVT PPz Lovenox PAtient will likely need overnight of inpatient care for hypoxic respiratory failure pending weaning him off oxygen Time Spent With Patient Time: Total time managing care of this patient today ____ minutes. Quality Stroke Does the patient have a stroke diagnosis?: No VTE Prior VTE?: No VTE Risk Level:: Medical - moderate - high VTE Device Contraindication: Treatment Not Indicated VTE Drug Contraindication: N/A - Med Ordered
[2022-08-05] MEDS: cefTRIAXone sodium 1 GM in 0.9 % Sodium Chloride 50 ML IV (14:04)
[2022-08-05 15:47] LABS: Glucose, Whole Blood 198 mg/dL (60-115)
[2022-08-05] MEDS: Azithromycin 500 MG TABLET PO (17:09)
[2022-08-05 20:05] LABS: Glucose, Whole Blood 238 mg/dL (60-115)
[2022-08-06] VITALS (8 sets, daily range): BP systolic 152–185; BP diastolic 77–98; PULSE 59–71; RESP 18–20; TEMP 36–36.6; O2SAT 90–94
[2022-08-06] MEDS: Omeprazole 20 MG CAPSULE.DR PO (05:54)
[2022-08-06 07:16] LABS: Glucose, Whole Blood 147 mg/dL (60-115)
[2022-08-06] MEDS: Enoxaparin Sodium 40 MG/0.4 ML SYRINGE 30 MG SUBCUT (07:57)
[2022-08-06] MEDS: Sertraline HCL 100 MG TABLET 200 MG PO (07:58)
[2022-08-06] MEDS: Isosorbide Mononitrate 60 MG TAB.ER.24H PO (07:58)
[2022-08-06] MEDS: Empagliflozin 25 MG TABLET PO (07:58)
[2022-08-06] MEDS: Aspirin Enteric Coated 81 MG TABLET.DR PO (07:58)
[2022-08-06] MEDS: buPROPion HCl XL 150 MG TAB.ER.24H PO (07:58)
[2022-08-06] MEDS: amLODIPine Besylate 10 MG TABLET PO (07:59)
[2022-08-06] MEDS: allopurinoL 100 MG TABLET PO (07:59)
[2022-08-06] MEDS: 0.9 % Sodium Chloride Flush 3 ML SYRINGE IVFLUSH ×3 (07:59→19:57)
[2022-08-06] MEDS: hydrALAZINE HCl 25 MG TABLET PO ×3 (07:59→19:56)
[2022-08-06] MEDS: Tamsulosin HCL 0.4 MG CAPSULE PO (07:59)
[2022-08-06] MEDS: carvediloL 25 MG TABLET PO ×2 (07:59→19:55)
[2022-08-06] MEDS: Atorvastatin Calcium 40 MG TABLET PO (07:59)
[2022-08-06] MEDS: methylPREDNISolone Sod Succ 40 MG/ML VIAL IVPUSH ×2 (07:59→19:57)
[2022-08-06] MEDS: Furosemide 40 MG/4 ML VIAL IVPUSH (10:28)
[2022-08-06 11:06] LABS: Glucose, Whole Blood 219 mg/dL (60-115)
--- NOTE | 2022-08-06 11:13 | MHC.CM.PN ---
Per ROUNDS discussion, Patient is not yet medically cleared for dc (IV Ceftriaxone, IV Solu Medrol, still desatting); home is the goal and CM will continue to follow.
[2022-08-06] MEDS: Insulin Lispro 100 UNIT/ML 3 ML VIAL SUBCUT ×2 (11:53→19:56)
--- NOTE | 2022-08-06 14:42 | P.PNIM_ITS ---
Subjective Subjective Date of Service: 08/06/22 Interval History: the patient was seen and evaluated this morning Sitting in his chair, feels slight improvement but still requiring oxygen exertional shortness of breath and continue to drop sat to 80s No reported other overnight events. Review of Systems Review of Systems: Yes all other systems are reviewed and are negative Physical Exam Vital Signs: Vital Signs: Last Vital Signs Temp 97.8 F 08/06/22 07:33 Pulse 70 08/06/22 11:33 Resp 18 08/06/22 11:33 BP 170/98 H 08/06/22 07:33 Pulse Ox 91 L 08/06/22 07:33 O2 Del Method 08/06/22 07:33 O2 Flow Rate 2 08/06/22 07:33 BMI result Body Mass Index 38.5 Const: Other: Constitutional : Awake, interactive, not in distress Neck : Normal inspection, Supple Cardiovascular : RRR, no JVP, no lower extremity edema Respiratory : decreased bilateral air entry, catheter expiratory wheezes, not an distress, on oxygen supplement Gastrointestinal:? soft, lax, Normal bowel sounds, Non tender Skin : Warm, Dry Neurological : Alert & oriented x3, No focal deficit Objective Data Active Medications Acetaminophen (Acetaminophen 325 Mg Tablet) 650 mg PO Q6H PRN PRN Reason: Pain, Mild (Pain Scale 1-3) Albuterol Sulfate (Albuterol Sulfate (0.083%) 2.5 Mg/3 Ml Vial.Neb) 2.5 mg INHALE Q4H PRN PRN Reason: Shortness of Breath/Wheezing Allopurinol (Allopurinol 100 Mg Tablet) 100 mg PO DAILY [facility] Last Admin: 08/06/22 07:59 Dose: 100 mg Documented By: WAN Amlodipine Besylate (Amlodipine Besylate 10 Mg Tablet) 10 mg PO DAILY [facility]; Protocol Last Admin: 08/06/22 07:59 Dose: 10 mg Documented By: WAN Aspirin (Aspirin Enteric Coated 81 Mg Tablet.) 81 mg PO DAILY [facility] Last Admin: 08/06/22 07:58 Dose: 81 mg Documented By: WAN Atorvastatin Calcium (Atorvastatin Calcium 40 Mg Tablet) 40 mg PO DAILY [facility] Last Admin: 08/06/22 07:59 Dose: 40 mg Documented By: WAN Azithromycin (Azithromycin 500 Mg Tablet) 500 mg PO Q24H [facility] Last Admin: 08/05/22 17:09 Dose: 500 mg Documented By: JOSH Benzocaine (Throat Lozenge, Medicated Lozenge) 1 lozenge MUCOUS MEM Q2H PRN PRN Reason: Sore Throat Last Admin: 08/05/22 08:49 Dose: 1 lozenge Documented By: JOSH Benzonatate (Benzonatate 100 Mg Capsule) 200 mg PO TID PRN PRN Reason: cough Bupropion HCl (Bupropion Hcl Xl 150 Mg Tab.Er.24h) 150 mg PO DAILY [facility] Last Admin: 08/06/22 07:58 Dose: 150 mg Documented By: WAN Carvedilol (Carvedilol 25 Mg Tablet) 25 mg PO BID [facility]; Protocol Last Admin: 08/06/22 07:59 Dose: 25 mg Documented By: WAN Albuterol Sulfate 2.5 mg/ (Ipratropium [place] 0.5 mg) 0 mg INHALE RQ4H WHILE AWAKE [facility] Last Admin: 08/06/22 11:32 Dose: 1 each Documented By: ALBA Empagliflozin (Empagliflozin 25 Mg Tablet) 25 mg PO DAILY [facility] Last Admin: 08/06/22 07:58 Dose: 25 mg Documented By: WAN Enoxaparin Sodium (Enoxaparin Sodium 40 Mg/0.4 Ml Syringe) 30 mg SUBCUT Q24H [facility] Last Admin: 08/06/22 07:57 Dose: 30 mg Documented By: WAN Ergocalciferol (Ergocalciferol (Vitamin D2) 1,250 Mcg Capsule) 1,250 mcg PO ZAVALA [facility] Last Admin: 08/05/22 09:00 Dose: 1,250 mcg Documented By: JOSH Hydralazine HCl (Hydralazine Hcl 25 Mg Tablet) 25 mg PO TID [facility]; Protocol Last Admin: 08/06/22 07:59 Dose: 25 mg Documented By: WAN Hydrochlorothiazide (Hydrochlorothiazide 25 Mg Tablet) 25 mg PO DAILY [facility] Last Admin: 08/02/22 07:48 Dose: 25 mg Documented By: SCOC Ceftriaxone Sodium 1 gm/ (Sodium Chloride) 50 mls @ 100 mls/hr IV Q24H [facility] Last Infusion: 08/05/22 14:45 Dose: 0 mls/hr Documented By: JOSH Insulin Glargine (Insulin Glargine,Hum.Rec.Anlog 100 Unit/Ml 10 Ml Vial) 15 unit SUBCUT DAILY [facility] Last Admin: 08/06/22 08:06 Dose: Not Given Documented By: WAN Non-Admin Reason: No Insulin Coverage Insulin Human Lispro (Insulin Lispro 100 Unit/Ml 3 Ml Vial) 0 unit SUBCUT QIDACHS [facility]; Protocol Last Admin: 08/06/22 11:53 Dose: 4 unit Documented By: WAN Isosorbide Mononitrate (Isosorbide Mononitrate 60 Mg Tab.Er.24h) 60 mg PO DAILY [facility]; Protocol Last Admin: 08/06/22 07:58 Dose: 60 mg Documented By: WAN Methylprednisolone Sodium Succinate (Methylprednisolone Sod Succ 40 Mg/Ml Vial) 40 mg IVPUSH Q12H [facility] Last Admin: 08/06/22 07:59 Dose: 40 mg Documented By: WAN Omeprazole (Omeprazole 20 Mg Capsule.Dr) 20 mg PO DAILY@0630 [facility] Last Admin: 08/06/22 05:54 Dose: 20 mg Documented By: LINDA Ondansetron HCl (Ondansetron Hcl 4 Mg/2 Ml Vial) 4 mg IVPUSH Q8H PRN PRN Reason: Nausea and Vomiting Pharmacy Consult (Consult Rx Perform Med Rec) 1 each MISCELLANE ONCE PRN PRN Reason: Consult order Sertraline HCl (Sertraline Hcl 100 Mg Tablet) 200 mg PO DAILY [facility] Last Admin: 08/06/22 07:58 Dose: 200 mg Documented By: WAN Sodium Chloride (0.9 % Sodium Chloride Flush 3 Ml Syringe) 3 ml IVFLUSH QSHIFT [facility] Last Admin: 08/06/22 07:59 Dose: 3 ml Documented By: WAN Spironolactone (Spironolactone 25 Mg Tablet) 25 mg PO DAILY [facility] Last Admin: 08/02/22 07:47 Dose: 25 mg Documented By: DARIANA Tamsulosin HCl (Tamsulosin Hcl 0.4 Mg Capsule) 0.4 mg PO DAILY [facility] Last Admin: 08/06/22 07:59 Dose: 0.4 mg Documented By: WAN Labs 08/02/22 05:39 08/04/22 05:54 Labs: Laboratory Results - last 24 hr 08/05/22 08/05/22 08/06/22 15:10 19:49 07:10 POC Glucose 198 H 238 H 147 H 08/06/22 11:00 POC Glucose 219 H Assessment and Plan (1) COPD exacerbation: Status: Acute (2) Pneumonia: Status: Acute (3) Acute respiratory failure with hypoxia: Status: Acute Plan A 67 years old male with PMH of COPD, smoking, obesity, diabetes, HTN among others who presents to the hospital complaining of difficulty breathing for the last 5 days or so.? Acute hypoxic respiratory failure 2/2 COPD exacerbation & CAP Tested positive for rhinovirus Repeated CXR showing patchy infiltrate in both lower lobes Negative blood cultures continue Duonebs, steroids and oxygen supplement Continue antibiotics wean O2 down as tolerated Incentive spirometry Pulm input appreciated, might need to go home w O2 Home O2 eval Hyperglycemia in Type 2 DM From steroid usage Hold Trulicity SSI, Lantus 15 units daily diabetic diet Hx CAD, diastolic CHF Continue ASA, statin , Isosorbide and Carvedilol To give a dose of Lasix HTN Amlodipine and HCT DVT PPz Lovenox PAtient will likely need overnight of inpatient care for hypoxic respiratory f ailure pending weaning him off oxygen Time Spent With Patient Time: Total time managing care of this patient today ____ minutes. Quality Stroke Does the patient have a stroke diagnosis?: No VTE Prior VTE?: No VTE Risk Level:: Medical - moderate - high VTE Device Contraindication: Treatment Not Indicated VTE Drug Contraindication: N/A - Med Ordered
[2022-08-06 15:34] LABS: Glucose, Whole Blood 150 mg/dL (60-115)
--- NOTE | 2022-08-06 15:42 | PM.CNPUL ---
History of Present Illness History of Present Illness Consult date: 08/06/22 Requesting physician: Emmy Quesada Reason for consult: dyspnea and hypoxemia Chief complaint: Hypoxia Narrative: THIS 67 YEARS OLD GENTLEMAN, ADMITTED ON 08/01/2022, WHICH CHIEF COMPLAINT OF COUGH AND DIFFICULTY IN BREATHING FOR ABOUT 5 DAYS. HE ALSO HAD LOSS OF SMELL, DENIED FEVER CHILLS OR CHEST PAIN. HE TESTED NEGATIVE FOR COVID, AND ALSO CHECKED WITH VIRAL PANEL, TESTED POSITIVE FOR RHINO VIRUS. CT SCAN OF THE CHEST HAS SHOWN INFILTRATE/ ATELECTASIS OFF BOTH BASILAR AREAS. THIS GENTLEMAN IS PREVIOUSLY KNOWN, TO HAVE DEPENDENCE ON TOBACCO, CHRONIC OBSTRUCTIVE PULMONARY DISEASE, AND ALSO COMPLEX SLEEP APNEA(CAROL/HYPOVENTILATION ) HE HAS BEEN A SMOKER THROUGHOUT HIS ADULT LIFE AND HAS NOT BEEN ABLE TO QUIT. NOW CLAIMS THAT SINCE THE ONSET OF HIS RESPIRATORY SYMPTOMS AFTER THE 1ST WEEK OF JULY HE HAS NOT SMOKED. ON 08/01 WHEN CHECKED IN THE EMERGENCY ROOM HE WAS FOUND TO BE QUITE HYPOXEMIC WITH O2 SAT IN 80S. HE HAS BEEN REQUIRING O2 SUPPLEMENTATION. WHILE IN THE HOSPITAL HE HAS NOT USED HIS CPAP AT NIGHT. PATIENT IS BEING TREATED FOR POSSIBLE POST VIRAL PNEUMONIA,, COPD EXACERBATION, AND HYPOXEMIA HE IS ON AZITHROMYCIN AND CEFTRIAXONE, FOR ANTIBIOTIC COVERAGE , ON SOLU-MEDROL. 40 MG IV Q.12 HOURS DUONEB UPDRAFT, OXYGEN SUPPLEMENTATION. AT PRESENT THE ISSUE IS THAT THE PATIENT IS BECOMING FRUSTRATED, ON 1 HAND HE WANTS TO GO HOME SO THAT HE COULD GO BACK TO WORK SOON POSSIBLE. ON THE OTHER HAND HE REMAINS HYPOXEMIC AND IS REQUIRING OXYGEN SUPPLEMENTATION. HE IS ALSO SHOWING HIS CONCERNED THAT IF HE GOES HOME ON OXYGEN, AND IS REQUIRED TO USE O2 DURING WORK, HE MAY NOT BE ABLE TO KEEP HIS JOB. 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 HE ALSO HAS CORONARY ARTERY DISEASE, DIABETES MELLITUS, HYPERTENSION, GERD SYMPTOMS, DEPRESSION, BPH. [facility] REVIEWED, Review of Systems Review of Systems: Yes all other systems are reviewed and are negative Constitutional: Constitutional: Reports no additional constitutional complaints [facility] Past Medical History Medical History (Updated 08/06/22 @ 16:01 by Anai Gabriel MD) Asthma CAD (coronary artery disease) Complex sleep apnea syndrome COPD (chronic obstructive pulmonary disease) Dyspnea GERD (gastroesophageal reflux disease) History of non-ST elevation myocardial infarction (NSTEMI) Hyperlipidemia Hypertension Personal history of nicotine dependence Pulmonary nodules Respiratory failure with hypoxia and hypercapnia Tubular adenoma of colon Type 2 diabetes mellitus without complication Surgical History Surgical History History of colonoscopy History of esophagogastroduodenoscopy (EGD) Social History Social History Household Members: None Housing: Condominium Do you presently have visiting nurse or other home services: No Alcohol intake: unknown Patient Tobacco Use Status: Former Tobacco user Tobacco use type: Cigarette Cigarette Packs Per Day: 0.75 Years Smoked: (onset 18 - 3/4ppd x 45yrs, 30pyh) Smoked in Last 30 Days: No Use of substances other than those prescribed or required for medical reasons: No Substance Use Type: Marijuana Currently Displaying Signs/Symptoms of Drug Intoxication Withdrawal: No Have you been hit, kicked, punched, or otherwise hurt by someone within the past year? If so, by whom?: No Do you feel safe in your current relationship?: No Current Relationship Is there a partner from a previous relationship who is making you feel unsafe now?: No Are you made to feel afraid or neglected: No Advance Directives: No Advance Directives Information Provided: Yes Do you have thoughts of harming others: None Do you have a plan to hurt others: No Plan Recently lost weight without trying: Unsure Nutrition Risks: Difficulty chewing service: No Current occupational status: employed Meds Allergies Allergy/AdvReac Type Severity Reaction Status Date / Time gabapentin Allergy Severe Nausea Verified 03/05/22 15:32 simvastatin [SIMVASTATIN] Allergy Unknown unknown Verified 03/05/22 15:32 Active Medications: Current Medications Acetaminophen (Acetaminophen 325 Mg Tablet) 650 mg PO Q6H PRN PRN Reason: Pain, Mild (Pain Scale 1-3) Albuterol Sulfate (Albuterol Sulfate (0.083%) 2.5 Mg/3 Ml Vial.Neb) 2.5 mg INHALE Q4H PRN PRN Reason: Shortness of Breath/Wheezing Allopurinol (Allopurinol 100 Mg Tablet) 100 mg PO DAILY [facility] Last Admin: 08/06/22 07:59 Dose: 100 mg Amlodipine Besylate (Amlodipine Besylate 10 Mg Tablet) 10 mg PO DAILY [facility]; Protocol Last Admin: 08/06/22 07:59 Dose: 10 mg Aspirin (Aspirin Enteric Coated 81 Mg Tablet.Dr) 81 mg PO DAILY [facility] Last Admin: 08/06/22 07:58 Dose: 81 mg Atorvastatin Calcium (Atorvastatin Calcium 40 Mg Tablet) 40 mg PO DAILY [facility] Last Admin: 08/06/22 07:59 Dose: 40 mg Azithromycin (Azithromycin 500 Mg Tablet) 500 mg PO Q24H [facility] Last Admin: 08/05/22 17:09 Dose: 500 mg Benzocaine (Throat Lozenge, Medicated Lozenge) 1 lozenge MUCOUS MEM Q2H PRN PRN Reason: Sore Throat Last Admin: 08/05/22 08:49 Dose: 1 lozenge Benzonatate (Benzonatate 100 Mg Capsule) 200 mg PO TID PRN PRN Reason: cough Bupropion HCl (Bupropion Hcl Xl 150 Mg Tab.Er.24h) 150 mg PO DAILY [facility] Last Admin: 08/06/22 07:58 Dose: 150 mg Carvedilol (Carvedilol 25 Mg Tablet) 25 mg PO BID [facility]; Protocol Last Admin: 08/06/22 07:59 Dose: 25 mg Albuterol Sulfate 2.5 mg/ (Ipratropium [place] 0.5 mg) 0 mg INHALE RQ4H WHILE AWAKE [facility] Last Admin: 08/06/22 15:24 Dose: 1 each Empagliflozin (Empagliflozin 25 Mg Tablet) 25 mg PO DAILY [facility] Last Admin: 08/06/22 07:58 Dose: 25 mg Enoxaparin Sodium (Enoxaparin Sodium 40 Mg/0.4 Ml Syringe) 30 mg SUBCUT Q24H [facility] Last Admin: 08/06/22 07:57 Dose: 30 mg Ergocalciferol (Ergocalciferol (Vitamin D2) 1,250 Mcg Capsule) 1,250 mcg PO ZAVALA [facility] Last Admin: 08/05/22 09:00 Dose: 1,250 mcg Hydralazine HCl (Hydralazine Hcl 25 Mg Tablet) 25 mg PO TID [facility]; Protocol Last Admin: 08/06/22 07:59 Dose: 25 mg Hydrochlorothiazide (Hydrochlorothiazide 25 Mg Tablet) 25 mg PO DAILY [facility] Last Admin: 08/02/22 07:48 Dose: 25 mg Ceftriaxone Sodium 1 gm/ (Sodium Chloride) 50 mls @ 100 mls/hr IV Q24H [facility] Last Infusion: 08/05/22 14:45 Dose: Infused Insulin Glargine (Insulin Glargine,Hum.Rec.Anlog 100 Unit/Ml 10 Ml Vial) 15 unit SUBCUT DAILY [facility] Last Admin: 08/06/22 08:06 Dose: Not Given Insulin Human Lispro (Insulin Lispro 100 Unit/Ml 3 Ml Vial) 0 unit SUBCUT QIDACHS [facility]; Protocol Last Admin: 08/06/22 15:35 Dose: Not Given Isosorbide Mononitrate (Isosorbide Mononitrate 60 Mg Tab.Er.24h) 60 mg PO DAILY [facility]; Protocol Last Admin: 08/06/22 07:58 Dose: 60 mg Methylprednisolone Sodium Succinate (Methylprednisolone Sod Succ 40 Mg/Ml Vial) 40 mg IVPUSH Q12H [facility] Last Admin: 08/06/22 07:59 Dose: 40 mg Omeprazole (Omeprazole 20 Mg Capsule.Dr) 20 mg PO DAILY@0630 [facility] Last Admin: 08/06/22 05:54 Dose: 20 mg Ondansetron HCl (Ondansetron Hcl 4 Mg/2 Ml Vial) 4 mg IVPUSH Q8H PRN PRN Reason: Nausea and Vomiting Pharmacy Consult (Consult Rx Perform Med Rec) 1 each MISCELLANE ONCE PRN PRN Reason: Consult order Sertraline HCl (Sertraline Hcl 100 Mg Tablet) 200 mg PO DAILY [facility] Last Admin: 08/06/22 07:58 Dose: 200 mg Sodium Chloride (0.9 % Sodium Chloride Flush 3 Ml Syringe) 3 ml IVFLUSH QSHIFT [facility] Last Admin: 08/06/22 07:59 Dose: 3 ml Spironolactone (Spironolactone 25 Mg Tablet) 25 mg PO DAILY [facility] Last Admin: 08/02/22 07:47 Dose: 25 mg Tamsulosin HCl (Tamsulosin Hcl 0.4 Mg Capsule) 0.4 mg PO DAILY [facility] Last Admin: 08/06/22 07:59 Dose: 0.4 mg Home Medications Medication Instructions Recorded Confirmed Last Taken Type allopurinol 100 mg tablet 100 mg PO DAILY 12/21/21 08/01/22 07/31/22 History amlodipine 10 mg tablet 10 mg PO DAILY 12/21/21 08/01/22 07/31/22 History aspirin 81 mg tablet,delayed 81 mg PO DAILY 12/21/21 08/01/22 07/31/22 History release atorvastatin 40 mg tablet 40 mg PO DAILY 12/21/21 08/01/22 07/31/22 History bupropion HCl 150 mg 24 hr tablet, 150 mg PO QAM 12/21/21 08/01/22 07/31/22 History extended release carvedilol 25 mg tablet 25 mg PO BID 12/21/21 08/01/22 07/31/22 History isosorbide mononitrate 60 mg 60 mg PO DAILY 12/21/21 08/01/22 07/31/22 History tablet,extended release 24 hr omeprazole 20 mg capsule,delayed 20 mg PO DAILY 12/21/21 08/01/22 07/31/22 History release dulaglutide 0.75 mg/0.5 mL 0.75 mg subcut ZAVALA 08/01/22 08/01/22 07/29/22 History subcutaneous pen injector (Trulicity) empagliflozin 25 mg tablet 1 tab PO DAILY 08/01/22 08/01/22 07/31/22 History (Jardiance) ergocalciferol (vitamin D2) 1,250 1 cap PO ZAVALA 08/01/22 08/01/22 07/31/22 History mcg (50,000 unit) capsule (Vitamin D2) ipratropium 0.5 mg-albuterol 3 mg 3 ml inhalation BID PRN Shortness 08/01/22 08/01/22 Unknown History (2.5 mg base)/3 mL nebulization Of Breath Or Wheezing soln olmesartan 40 mg tablet 1 tab PO DAILY 08/01/22 08/01/22 07/31/22 History sertraline 100 mg tablet 2 tab PO DAILY 08/01/22 08/01/22 07/31/22 History spironolactone 25 1 tab DAILY 08/01/22 08/01/22 07/31/22 History mg-hydrochlorothiazide 25 mg tablet tamsulosin 0.4 mg capsule 1 cap PO DAILY 08/01/22 08/01/22 07/31/22 History Physical Exam Vital Signs: Vital Signs: Last Vital Signs Temp 97.7 F 08/06/22 14:51 Pulse 71 08/06/22 15:25 Resp 18 08/06/22 15:25 BP 152/82 H 08/06/22 14:51 Pulse Ox 91 L 08/06/22 14:51 O2 Del Method 08/06/22 14:51 O2 Flow Rate 2 08/06/22 07:33 BMI result Body Mass Index 38.5 Const: Other: GROSSLY OBESE, SITTING UP IN THE CHAIR, ON O2 2 L/MINUTE General: comfortable (BUT ANXIOUS AND SOMEWHAT FRUSTRATED), no acute distress, alert and awake Orientation/consciousness: patient oriented x3 HEENT: Other: NARROW AND CROWDED OROPHARYNX, MALLAMPATI CLASS 4. NO ACUTE INFECTIOUS PROCESS IS NOTED General nose exam: No nasal polyps present and No nasal discharge present Face and sinus: Yes sinuses nontender Mouth: oropharynx normal Throat: Yes posterior oropharynx normal Eyes: General: appearance normal, both eyes and all related structures Neck: Neck: Yes normal visual inspection, Yes no lymphadenopathy, Yes trachea midline, Yes no JVD and Yes other (NECK IS GROSSLY OBESE) Thyroid: Thyroid normal Chest: Chest palpation & inspection: normal inspection of the chest, normal palpation of entire chest wall and no tenderness Resp: Other: PERCUSSION NOTE IS NOT PERCEPTIBLE BECAUSE OF THE THICK CHEST WALL. BREATH SOUNDS ARE GENERALLY DISTANT, AND DIMINISHED OVER THE BASILAR AREAS. A FEW FINE INSPIRATORY CRACKLES ARE HEARD OVER BOTH BASES . NO WHEEZES ARE HEARD. Cardio: Palpation: normal PMI Rate: regular rate Rhythm: regular rhythm Heart sounds: no gallops and no murmurs GI: Palpation (GI): Soft to palpation, nontender, No hepatosplenomegaly present and no masses Auscultation: normal bowel sounds Back/Spine/Pelvis: Thoracic/Lumbar Spine: thoracic and lumbar spine normal to inspection Skin: General skin exam: no rashes or lesions noted Neuro: General: patient oriented x3 and no focal motor deficits Cranial nerves: Yes CN's II-XII intact bilaterally Extrem: General: Yes normal to inspection, Yes no clubbing, cyanosis or edema and Yes no calf tenderness Psych: Appearance: grossly normal and well kempt Speech and movement: Normal speech and movement present Affect: Anxious affect present Results Laboratory Findings 08/02/22 05:39 08/04/22 05:54 ABG, PT/INR, D-dimer: VENOUS BGs 0N 08/01 PH7.31 PCO2 60 PO2 62 Abnormal lab findings: Abnormal Labs 08/01/22 08/01/22 08/01/22 15:25 15:37 15:37 WBC RBC 5.81 H Hct 52.7 H MCHC RDW 16.5 H Plt Count 143 L MPV 9.2 L Immature Gran % (Auto) 1.1 H Neut % (Auto) 76.4 H Lymph % (Auto) 13.9 L Lymph # (Auto) 1.0 L Abs Immat Gran (auto) 0.08 H VBG HCO3 Potassium Carbon Dioxide 30 H Anion Gap 11 L BUN 20 H Creatinine POC Glucose Random Glucose 138 H Total Protein 6.3 L Entero/Rhino (PCR) Detected A 08/01/22 08/01/22 08/01/22 16:16 20:20 21:04 WBC RBC Hct MCHC RDW Plt Count MPV Immature Gran % (Auto) Neut % (Auto) Lymph % (Auto) Lymph # (Auto) Abs Immat Gran (auto) VBG HCO3 31 H Potassium Carbon Dioxide Anion Gap BUN Creatinine POC Glucose 281 H 317 H Random Glucose Total Protein Entero/Rhino (PCR) 08/02/22 08/02/22 08/02/22 05:39 05:39 07:10 WBC 11.4 H RBC 5.86 H Hct 54.1 H MCHC 30.3 L RDW 16.5 H Plt Count MPV Immature Gran % (Auto) Neut % (Auto) Lymph % (Auto) Lymph # (Auto) Abs Immat Gran (auto) VBG HCO3 Potassium Carbon Dioxide 31 H Anion Gap BUN 28 H Creatinine POC Glucose 142 H Random Glucose 124 H Total Protein Entero/Rhino (PCR) 08/02/22 08/02/22 08/02/22 13:14 18:31 21:06 WBC RBC Hct MCHC RDW Plt Count MPV Immature Gran % (Auto) Neut % (Auto) Lymph % (Auto) Lymph # (Auto) Abs Immat Gran (auto) VBG HCO3 Potassium Carbon Dioxide Anion Gap BUN Creatinine POC Glucose 181 H 157 H 186 H Random Glucose Total Protein Entero/Rhino (PCR) 08/03/22 08/03/22 08/03/22 06:11 07:19 11:19 WBC RBC Hct MCHC RDW Plt Count MPV Immature Gran % (Auto) Neut % (Auto) Lymph % (Auto) Lymph # (Auto) Abs Immat Gran (auto) VBG HCO3 Potassium 5.4 H Carbon Dioxide 31 H Anion Gap BUN 39 H Creatinine 1.46 H POC Glucose 161 H 176 H Random Glucose 163 H Total Protein Entero/Rhino (PCR) 08/03/22 08/03/22 08/03/22 12:52 16:15 19:57 WBC RBC Hct MCHC RDW Plt Count MPV Immature Gran % (Auto) Neut % (Auto) Lymph % (Auto) Lymph # (Auto) Abs Immat Gran (auto) VBG HCO3 Potassium Carbon Dioxide Anion Gap BUN 40 H Creatinine POC Glucose 186 H 206 H Random Glucose 180 H Total Protein Entero/Rhino (PCR) 08/04/22 08/04/22 08/04/22 05:54 07:30 11:13 WBC RBC Hct MCHC RDW Plt Count MPV Immature Gran % (Auto) Neut % (Auto) Lymph % (Auto) Lymph # (Auto) Abs Immat Gran (auto) VBG HCO3 Potassium Carbon Dioxide 33 H Anion Gap BUN 39 H Creatinine POC Glucose 155 H 219 H Random Glucose 147 H Total Protein Entero/Rhino (PCR) 08/04/22 08/04/22 08/05/22 15:11 19:19 07:44 WBC RBC Hct MCHC RDW Plt Count MPV Immature Gran % (Auto) Neut % (Auto) Lymph % (Auto) Lymph # (Auto) Abs Immat Gran (auto) VBG HCO3 Potassium Carbon Dioxide Anion Gap BUN Creatinine POC Glucose 242 H 183 H 137 H Random Glucose Total Protein Entero/Rhino (PCR) 08/05/22 08/05/22 08/05/22 11:22 15:10 19:49 WBC RBC Hct MCHC RDW Plt Count MPV Immature Gran % (Auto) Neut % (Auto) Lymph % (Auto) Lymph # (Auto) Abs Immat Gran (auto) VBG HCO3 Potassium Carbon Dioxide Anion Gap BUN Creatinine POC Glucose 227 H 198 H 238 H Random Glucose Total Protein Entero/Rhino (PCR) 08/06/22 08/06/22 08/06/22 07:10 11:00 15:29 WBC RBC Hct MCHC RDW Plt Count MPV Immature Gran % (Auto) Neut % (Auto) Lymph % (Auto) Lymph # (Auto) Abs Immat Gran (auto) VBG HCO3 Potassium Carbon Dioxide Anion Gap BUN Creatinine POC Glucose 147 H 219 H 150 H Random Glucose Total Protein Entero/Rhino (PCR) Microbiology: Microbiology 08/01/22 15:37 Blood - Venous Blood Culture - Preliminary No growth after 48 hours. 08/01/22 15:25 Blood - Venous Blood Culture - Preliminary No growth after 48 hours. Diagnostic Findings Chest x-ray: report reviewed and image reviewed CT scan - chest: report reviewed and image reviewed Assessment and Plan (1) COPD exacerbation: Status: Acute (2) Pneumonia: Status: Acute (3) Respiratory failure with hypoxia and hypercapnia: Status: Acute (4) Complex sleep apnea syndrome: Status: Acute Plan THIS 67 YEARS OLD GROSSLY OBESE GENTLEMAN, IS KNOWN TO HAVE ABOVE-NOTED MEDICAL PROBLEMS. AT PRESENT HE SEEMS TO HAVE POST VIRAL PNEUMONITIS,/ATALECTASIS OF BOTH LOWER LOBES. IN GENERAL HE IS IMPROVING BUT HIS FRUSTRATION IS MAINLY BECAUSE HE REMAINS DEPENDENT ON O2. HE DOES NOT WANT TO USE OXYGEN, BECAUSE IT MAY ADVERSELY AFFECT HIS AM PLIABILITY. 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 I TOLD HIM THAT IF MEDICALLY NECESSARY HE WILL HAVE TO USE OXYGEN. AT PRESENT HE SHOULD CONTINUE O2 2 L/MINUTE. IF POSSIBLE HE SHOULD HAVE HIS HOME CPAP DEVICE HERE AND START USING IT AT NIGHT. I SUGGEST THAT WE CONTINUE TO TREAT HIM ACTIVELY FOR THE NEXT FEW DAYS, AND HOPE THAT HE WILL START IMPROVING. HE SHOULD START DOING DEEP BREATHING EXERCISES AND I HAVE ORDERED INCENTIVE SPIROMETRY. CONTINUE : AZITHROMYCIN 500 MG IV DAILY. CEFTRIAXONE 1 G IV DAILY. SOLU-MEDROL 40 MG IV Q.12 HOURS DUONEB UPDRAFTS Q 6 HOURS WHILE AWAKE. O2 2 L/MINUTE. ENCOURAGED HIM TO DO DEEP BREATHING EXERCISES. Time Spent With Patient Time: Total time managing care of this patient today ____ minutes. Procedures Date of Service Date of Service: 08/06/22
--- NOTE | 2022-08-06 16:01 | MHC.CM.PN ---
Per RN's request, CM met with Patient at bedside. Patient expressed concerns about communication between his 3 main Doctors (Attending/Pulmonology/Nephrology)and specifically his med list and each of these Doctors being involved in the final med list at time of dc. Patient is also very concerned about the possibility of needing home O2, which would prevent him from continuing to do the job he has, loves and wants to keep until he retires. CM has reached out to Patient's 3 mentioned Doctors to be sure that they are aware of Patient's concerns and to assist in any way possible. CM will follow.
[2022-08-06] MEDS: cefTRIAXone sodium 1 GM in 0.9 % Sodium Chloride 50 ML IV (16:09)
[2022-08-06 19:35] LABS: Glucose, Whole Blood 251 mg/dL (60-115)
[2022-08-06] MEDS: Azithromycin 500 MG TABLET PO (19:56)
[2022-08-07] VITALS: PULSE 52; O2SAT 91
[2022-08-07] MEDS: Omeprazole 20 MG CAPSULE.DR PO (06:01)
[2022-08-07] MEDS: Acetaminophen 325 MG TABLET 650 MG PO (06:01)
[2022-08-07] MEDS: Throat Lozenge, Medicated LOZENGE 1 LOZENGE MUCOUS MEM (06:02)
[2022-08-07 07:16] VITALS: BP 175/63; PULSE 52; RESP 14; TEMP 36.2; O2SAT 94
[2022-08-07 07:41] LABS: Glucose, Whole Blood 147 mg/dL (60-115)
[2022-08-07 07:49] VITALS: PULSE 58; RESP 18; O2SAT 93
[2022-08-07] MEDS: Insulin Glargine,Hum.rec.anlog 100 UNIT/ML 10 ML VIAL 15 UNIT SUBCUT (08:03)
[2022-08-07] MEDS: Isosorbide Mononitrate 60 MG TAB.ER.24H PO (08:04)
[2022-08-07] MEDS: Empagliflozin 25 MG TABLET PO (08:05)
[2022-08-07] MEDS: Sertraline HCL 100 MG TABLET 200 MG PO (08:05)
[2022-08-07] MEDS: allopurinoL 100 MG TABLET PO (08:05)
[2022-08-07] MEDS: amLODIPine Besylate 10 MG TABLET PO (08:05)
[2022-08-07] MEDS: Aspirin Enteric Coated 81 MG TABLET.DR PO (08:05)
[2022-08-07] MEDS: Atorvastatin Calcium 40 MG TABLET PO (08:05)
[2022-08-07] MEDS: hydrALAZINE HCl 25 MG TABLET PO (08:05)
[2022-08-07] MEDS: Tamsulosin HCL 0.4 MG CAPSULE PO (08:05)
[2022-08-07] MEDS: buPROPion HCl XL 150 MG TAB.ER.24H PO (08:05)
[2022-08-07] MEDS: Enoxaparin Sodium 40 MG/0.4 ML SYRINGE 30 MG SUBCUT (08:05)
[2022-08-07] MEDS: 0.9 % Sodium Chloride Flush 3 ML SYRINGE IVFLUSH (08:06)
[2022-08-07] MEDS: methylPREDNISolone Sod Succ 40 MG/ML VIAL IVPUSH (08:06)
[2022-08-07 09:11] VITALS: PULSE 61; PULSE 67; PULSE 77; O2SAT 86; O2SAT 90
--- NOTE | 2022-08-07 09:48 | PM.PNPUL ---
Subjective Subjective Date of Service: 08/07/22 Principal diagnosis: COPD EXCARBATION , RESP. FAILURE,PNEUMONIA ,CAROL/HYPOVENTILATION Interval history: THIS GENTLEMAN IS FEELING LITTLE BETTER THAN YESTERDAY, HE IS NOT ANXIOUS BEFORE BECAUSE NOW HE DOES UNDERSTAND THE NEED TO GO HOME ON OXYGEN. HE IS STAYING AFEBRILE, DENIES ANY CHEST PAIN, BUT STILL NOT DOING DEEP BREATHING. HE IS HAPPY WITH THE USE OF INCENTIVE SPIROMETRY FOR EXERCISING. STILL ANXIOUS TO GO HOME SOON. Objective Data Labs 08/02/22 05:39 08/04/22 05:54 Labs: Laboratory Results - last 24 hr 08/06/22 08/06/22 08/06/22 11:00 15:29 19:29 POC Glucose 219 H 150 H 251 H 08/07/22 07:15 POC Glucose 147 H Microbiology Microbiology Results: Microbiology 08/01/22 15:37 Blood - Venous Blood Culture - Final No growth after 5 days. 08/01/22 15:25 Blood - Venous Blood Culture - Final No growth after 5 days. Physical Exam Vital Signs: Vital Signs: Last Vital Signs Temp 97.1 F 08/07/22 07:16 Pulse 58 08/07/22 07:49 Resp 18 08/07/22 07:49 BP 175/63 H 08/07/22 07:16 Pulse Ox 94 08/07/22 07:16 O2 Del Method 08/07/22 07:16 O2 Flow Rate 2 08/07/22 07:16 BMI result Body Mass Index 38.5 Const: Other: GROSSLY OBESE, SITTING UP IN THE CHAIR, ON O2 2 L/MINUTE General: comfortable (BUT ANXIOUS AND SOMEWHAT FRUSTRATED), no acute distress, alert and awake Orientation/consciousness: patient oriented x3 HEENT: Other: NARROW AND CROWDED OROPHARYNX, MALLAMPATI CLASS 4. NO ACUTE INFECTIOUS PROCESS IS NOTED General nose exam: No nasal polyps present and No nasal discharge present Face and sinus: Yes sinuses nontender Mouth: oropharynx normal Throat: Yes posterior oropharynx normal Eyes: General: appearance normal, both eyes and all related structures Neck: Neck: Yes normal visual inspection, Yes no lymphadenopathy, Yes trachea midline, Yes no JVD and Yes other (NECK IS GROSSLY OBESE) Thyroid: Thyroid normal Chest: Chest palpation & inspection: normal inspection of the chest, normal palpation of entire chest wall and no tenderness Resp: Other: PERCUSSION NOTE IS NOT PERCEPTIBLE BECAUSE OF THE THICK CHEST WALL. BREATH SOUNDS ARE GENERALLY DISTANT, AND DIMINISHED OVER THE BASILAR AREAS. THE BASILAR AREAS ARE SLIGHTLY MORE AERATED THAN BEFORE. NO WHEEZES OR CREPS. ARE HEARD. Cardio: Palpation: normal PMI Rate: regular rate Rhythm: regular rhythm Heart sounds: no gallops and no murmurs GI: Palpation (GI): Soft to palpation, nontender, No hepatosplenomegaly present and no masses Auscultation: normal bowel sounds Back/Spine/Pelvis: Thoracic/Lumbar Spine: thoracic and lumbar spine normal to inspection Skin: General skin exam: no rashes or lesions noted Neuro: General: patient oriented x3 and no focal motor deficits Cranial nerves: Yes CN's II-XII intact bilaterally Extrem: General: Yes normal to inspection, Yes no clubbing, cyanosis or edema and Yes no calf tenderness Psych: Appearance: grossly normal and well kempt Speech and movement: Normal speech and movement present Affect: Anxious affect present Procedures Date of Service Date of Service: 08/07/22 Assessment and Plan Assessment and plan (1) COPD exacerbation: Status: Acute (2) Pneumonia: Status: Acute (3) Complex sleep apnea syndrome: Status: Acute (4) Respiratory failure with hypoxia and hypercapnia: Status: Acute (5) Personal history of nicotine dependence: Problem details: (current smoker - onset 18 - 3/4ppd x 45yrs, 30pyh) Status: Acute Plan THIS GENTLEMAN IS SLIGHTLY IMPROVED. FROM BEFORE HE STILL HAS SIGNIFICANT RESPIRATORY INSUFFICIENCY, WITH HYPOXEMIA, REQUIRING O2 2 L/MINUTE. HE IS AMENABLE TO GO HOME ON OXYGEN, WOULD NEED A STATIONARY CONCENTRATOR AND LIGHTWEIGHT PORTABLE UNIT, ANTIBIOTICS MAY BE CONVERTED TO ORAL ROUTE AND HE SHOULD COMPLETE THE COURSE OF 10 DAYS. IV SOLU-MEDROL CAN BE CHANGED TO ORAL PREDNISONE 40 MG A DAY AT THIS TIME THEN TO WEAN OFF BY 10 MG EVERY WEEK. DUO- NEB UPDRAFTS Q 6 HOURS WHILE AWAKE. HE SHOULD CONTINUE TO DO DEEP BREATHING EXERCISES. HE SHOULD CONTINUE TO USE HIS BIPAP WITH ASV MODE , BBEFORE FOR ABOUT 8 HOURS EVERY NIGHT. HE WILL NEED TO USE OXYGEN ALONG WITH HIS BIPAP. HE SHOULD TRY TO SET UP A FOLLOW-UP APPOINTMENT AT OUR PULMONARY OFFICE IN ABOUT 1 WEEK TO 10 DAYS. AT THAT TIME HE CAN DISCUSS WITH DR. RIZZO , ABOUT HIS PLANS TO GO BACK TO WORK. Time Spent With Patient Time: Total time managing care of this patient today ____ minutes. Progress Note: Quality Stroke Does the patient have a stroke diagnosis?: No
[2022-08-07 12:09] VITALS: PULSE 74; RESP 18; O2SAT 93
--- NOTE | 2022-08-07 13:56 | P.DS_ITS ---
DS: Providers Provider Date of Service: 08/07/22 Date of admission: 08/01/22 18:35 Primary care physician: Rachelle Lopes NP Consults: 08/06/22 08:23 Consult to Pulmonology Routine Consulting Provider: Anai Gabriel Reason for consultation: hypoxic Resp. failure, Rhino V infx, COPD for your kind eval DS: Diagnosis Discharge Diagnosis (1) COPD exacerbation: Status: Acute (2) Pneumonia: Status: Acute (3) Complex sleep apnea syndrome: Status: Acute (4) Respiratory failure with hypoxia and hypercapnia: Status: Acute (5) Personal history of nicotine dependence: Status: Acute (6) Acute respiratory failure with hypoxia: Status: Acute DS: Summary Hospital Course Hospital Course: Admission note HPI A 67 years old male with PMH of COPD, smoking, obesity, diabetes, HTN among othe rs who presents to the hospital complaining of difficulty breathing for the last 5 days or so.? The patient reports that for the last 5 days he lost his sense of taste and started to develop symptoms of shortness of breath and coughing with associated chills but no fever.? He stop smoking at that point but continued to get worse with increased weakness and feeling like he was hit by a bus.? Denies any fever, headache, dizziness, abdominal pain, nausea, vomiting, change in bowel habit or urinary symptoms. In the emergency he was found to be hypoxic in mid 80s on room air.? Responded well to treatment with oxygen, steroids and nebulizers. Admitted for further evaluation and treatment. Hospital course The patient was admitted to the hospital for treatment of acute hypoxic respiratory failure secondary to COPD exacerbation community acquired pneumonia based on chest x-ray showing bad as she infiltrate. The patient tested positive for rhinovirus as well. Blood cultures remain negative during the hospital stay. He was treated with IV steroids, antibiotics, bronchodilator nebulizers and oxygen supplement with fair response over the course of hospital stay as the oxygen requirement was weaned down as he was evaluated by pulmonology team. We could not get him of the oxygen so he was evaluated for home O2 which she qualifies for as to L at rest and 4 with ambulation for now. To continue tapering dose of steroids and to finish 10 days of antibiotics upon discharge. With a plan to follow-up with pulmonology as outpatient next week. Continue prednisone tapering dose as prescribed Azithromycin and Ceftin for 5 more days Cough medicine as needed DuoNebs every 6 hours for the next week To follow-up with Dr. Yo in the office next week Time Spent with Patient Time attestation: Total time managing care of this patient today ____ minutes. Discharge coordination time: Greater than 30 minutes Quality: Safe Use of Opioids Does Pt have an Active Cancer Diagnosis on the Problem List?: No Quality: Stroke Does the patient have a stroke diagnosis?: No Physical Exam Vital Signs: Vital Signs: Last Vital Signs Temp 97.1 F 08/07/22 07:16 Pulse 74 08/07/22 12:09 Resp 18 08/07/22 12:09 BP 175/63 H 08/07/22 07:16 Pulse Ox 94 08/07/22 07:16 O2 Del Method 08/07/22 07:16 O2 Flow Rate 2 08/07/22 07:16 BMI result Body Mass Index 38.5 Const: Other: Constitutional : Awake, interactive, not in distress Neck : Normal inspection, Supple Cardiovascular : RRR, no JVP, no lower extremity edema Respiratory : decreased bilateral air entry, no wheezes, not an distress, on oxygen supplement Gastrointestinal:? soft, lax, Normal bowel sounds, Non tender Skin : Warm, Dry Neurological : Alert & oriented x3, No focal deficit DS: Data Data Completed and Pending Labs on day of discharge: Laboratory Results - last 24 hr 08/06/22 08/06/22 08/07/22 15:29 19:29 07:15 POC Glucose 150 H 251 H 147 H Imaging Chest x-ray: Radiologist's impression: ITS Impressions Chest X-Ray 08/01/22 16:50 IMPRESSION: 1. Minimal pulmonary vascular crowding or subsegmental atelectasis at the medial left lung base. 2. No acute pulmonary process. Chest X-Ray 08/04/22 08:52 IMPRESSION: Hypoexpanded lungs with patchy infiltrate/atelectasis in both lower lobes. Discharge Plan Discharge Anticipated Discharge Date/Time: 08/07/22 13:42 Patient Disposition: Home Health Service Discharge Diagnosis: Acute hypoxic respiratory failure 2/2 COPD exacerbation and Rhino virus infection Referrals: Rachelle Lopes, [employer] [Primary Care Provider] - 1 Week Discharge Medications: New benzonatate 100 mg Capsule 200 mg PO TID PRN (Reason: cough) Qty: 30 0RF azithromycin 500 mg tablet 500 mg PO DAILY 5 Days Qty: 5 0RF cefuroxime axetil 500 mg tablet 500 mg PO BID Qty: 10 0RF prednisone 20 mg tablet See Taper PO DAILY Qty: 40 0RF Taper: Prednisone 40 mg daily for 7 Days and 0 Hour 30 mg daily for 7 Days and 0 Hour 20 mg daily for 7 Days and 0 Hour 10 mg daily for 7 Days and 0 Hour ipratropium-albuterol 0.5 mg-3 mg(2.5 mg base)/3 mL solution for nebulization 3 ml inhalation Q6H Qty: 180 1RF Continued sertraline 100 mg tablet 2 tab PO DAILY tamsulosin 0.4 mg capsule 1 cap PO DAILY Jardiance 25 mg tablet 1 tab PO DAILY Trulicity 0.75 mg/0.5 mL pen injector 0.75 mg subcut ZAVALA olmesartan 40 mg tablet 1 tab PO DAILY ipratropium-albuterol 0.5 mg-3 mg(2.5 mg base)/3 mL solution for nebulization 3 ml inhalation BID PRN (Reason: Shortness Of Breath Or Wheezing) spironolacton-hydrochlorothiaz 25-25 mg tablet 1 tab DAILY ergocalciferol (vitamin D2) [Vitamin D2] 1,250 mcg (50,000 unit) capsule 1 cap PO ZAVALA allopurinol 100 mg tablet 100 mg PO DAILY amlodipine 10 mg tablet 10 mg PO DAILY aspirin 81 mg tablet,delayed release (DR/EC) 81 mg PO DAILY atorvastatin 40 mg tablet 40 mg PO DAILY bupropion HCl 150 mg tablet extended release 24 hr 150 mg PO QAM carvedilol 25 mg tablet 25 mg PO BID Rx Instructions: must administer with a meal/food isosorbide mononitrate 60 mg tablet extended release 24 hr 60 mg PO DAILY omeprazole 20 mg capsule,delayed release(DR/EC) 20 mg PO DAILY Discharge Orders: Discharge Order (Routine); Ordered 08/07/22 Ordered By: Emmy Quesada Diet: Advance to usual diet Activity on Discharge: As tolerated Stand Alone Forms: Patient Portal Discharge page, Work/School Release Care Plan Goals: Read below Health Concerns: Read below Plan of Treatment: Read below Assessment: You were admitted to the hospital for evaluation of difficulty breathing. Found to be in COPD exacerbation with chest x-ray suggestive of possible pneumonia. Tested positive for rhinovirus. Treated with IV steroids, antibiotics, oxygen supplement and nebulizers with fair response over the course of hospital stay. Evaluated by pulmonology team as you continue to require oxygen supplement. Home O2 evaluation was done and you will have oxygen delivered to your home. Continue prednisone tapering dose as prescribed Azithromycin and Ceftin for 5 more days Cough medicine as needed DuoNebs every 6 hours for the next week To follow-up with Dr. Yo in the office next week
--- NOTE | 2022-08-07 14:40 | W.MHC.F2F ---
Service Date Service Date: 08/07/22 Encounter Date of encounter: 08/07/22 Reasons for Services Signs and symptoms assessed: New home O2 Reason for intermediate: medication treatment and teach disease management Homebound: Leaving the home is medically contraindicated at this time without the asist of a device and/or another person due th the listed conditions above and below. Reason homebound: shortness of breath with minimal effort Certification: Based on the above findings, I certify that this patient is confined to the home and needs intermittent intermediate care, physical therapy and/or speech therapy, or continues to need occupational therapy. The patient is under my care, and I have initiated the establishment of the plan of care. The patient will be followed by a physician who will periodically review the plan of care. Time Spent With Patient Time: Total time managing care of this patient today ____ minutes.
--- NOTE | 2022-08-07 15:16 | MHC.CM.PN ---
Patient has been medically cleared for dc to home today with [facility]. [facility] has accepted Patient. Patient will return home today at 3:30PM PM with his new O2 (2 O2 tanks) via [facility].Imm addressed.
== END 2022-08-07 16:00 | disposition home health service (06) | DRG 193 ==
LOC: HO.ED 18:05 → HO.EDOVER 18:55 → HO.IMC 08-02 20:01
PROVIDERS: Physician Assistant Medical; Admitting Provider Student in an Organized Health Care Education/Training Program; Emergency Provider Emergency Medicine; PCP Nurse Practitioner Family; Visit Provider Student in an Organized Health Care Education/Training Program
DX: J18.9 Pneumonia, unspecified organism (principal); J96.01 Acute respiratory failure with hypoxia; J96.02 Acute respiratory failure with hypercapnia; I50.32 Chronic diastolic (congestive) heart failure; J98.11 Atelectasis; E66.2 Morbid (severe) obesity with alveolar hypoventilation; J44.1 Chronic obstructive pulmonary disease with (acute) exacerbation; J44.0 Chronic obstructive pulmonary disease with (acute) lower respiratory infection; I25.10 Atherosclerotic heart disease of native coronary artery without angina pectoris; E11.65 Type 2 diabetes mellitus with hyperglycemia; I11.0 Hypertensive heart disease with heart failure; T38.0X5A Adverse effect of glucocorticoids and synthetic analogues, initial encounter; N40.0 Benign prostatic hyperplasia without lower urinary tract symptoms; F32.A Depression, unspecified; B97.89 Other viral agents as the cause of diseases classified elsewhere; Z20.822 Contact with and (suspected) exposure to COVID-19; Z68.38 Body mass index [BMI] 38.0-38.9, adult; Z87.891 Personal history of nicotine dependence; Z88.8 Allergy status to other drugs, medicaments and biological substances; Z79.82 Long term (current) use of aspirin; Z79.899 Other long term (current) drug therapy
CPT/HCPCS: 0241U; 36415; 71045; 71046; 80048; 80053; 82803; 82947; 83605; 83735; 83880; 84484; 85025; 85027; 87040; 87633; 93005; 94640; 99285; J0696; J1650; J1940; J2920

== ENCOUNTER → 2022-08-24 14:05 | Outpatient (BNVA) | payer MEDICARE, MEDICAID, SELFPAY | PROVIDERS: PCP Nurse Practitioner Family; Visit Provider Hospitalist | DX: J44.9 Chronic obstructive pulmonary disease, unspecified (principal); J45.40 Moderate persistent asthma, uncomplicated; G47.31 Primary central sleep apnea; R06.09 Other forms of dyspnea; R91.8 Other nonspecific abnormal finding of lung field; Z79.899 Other long term (current) drug therapy; Z87.891 Personal history of nicotine dependence | CPT/HCPCS: 94618; 99212 ==

== ENCOUNTER → 2023-02-19 14:18 | Outpatient (BNVA) | payer MEDICARE, MEDICAID, SELFPAY | PROVIDERS: PCP Nurse Practitioner Family; Visit Provider Hospitalist ==

== ENCOUNTER → 2023-09-26 15:51 | Outpatient (BNVA) | payer SELFPAY | PROVIDERS: PCP Nurse Practitioner Family; Visit Provider Physician Assistant | DX: Z02.79 Encounter for issue of other medical certificate (principal) ==

== ENCOUNTER → 2024-12-08 08:38 | Outpatient (RCR) | payer MEDICAID, SELFPAY | END | disposition home or self-care (01) | LOC: HO.PTCHIC 07-19 10:53 | PROVIDERS: PCP Internal Medicine; Visit Provider Internal Medicine | DX: M25.561 Pain in right knee (principal) ==

== ENCOUNTER 2025-01-25 11:02 | Outpatient (RCR) | payer MEDICARE, SELFPAY | END 2025-02-24 08:14 | disposition home or self-care (01) | LOC: HO.PTCHIC 11:02 | PROVIDERS: PCP Nurse Practitioner Family; Visit Provider Nurse Practitioner Family | DX: M25.561 Pain in right knee (principal); M25.562 Pain in left knee; M25.551 Pain in right hip; M25.552 Pain in left hip; M25.511 Pain in right shoulder; M25.512 Pain in left shoulder | CPT/HCPCS: 97110; 97162 ==